=== PATIENT | female | born 1975 | race Caucasian/White ===

== ENCOUNTER → 2021-03-04 | Day surgery (SDC) | payer OTHER | END | disposition home or self-care (01) | LOC: FMAMMOTONE 12:05 | PROVIDERS: ATTEND Obstetrics & Gynecology | PROC: 0HBT3ZX Excision of Right Breast, Percutaneous Approach, Diagnostic (ICD-10-PCS; principal; 2021-03-04) | DX: D05.11 Intraductal carcinoma in situ of right breast (principal); N60.31 Fibrosclerosis of right breast; N60.91 Unspecified benign mammary dysplasia of right breast; N64.1 Fat necrosis of breast; N64.89 Other specified disorders of breast | CPT/HCPCS: 19081; 76098-TC-FY; 88305-TC; 88341-TC; 88342-TC ==

== ENCOUNTER 2021-06-15 04:11 | Day surgery (SDC) | payer OTHER ==
[2021-06-15] MEDS ORDERED: LIDOCAINE HCL 1%, 10 MG/ML (20ML VIAL) ONE ×2 (09:31→11:26)
[2021-06-15] MEDS ORDERED: MIDAZOLAM HCL 2 MG/2 ML SINGLE DOSE VIAL ONE (09:47)
[2021-06-15] MEDS ORDERED: PROPOFOL 20 ML ONE ×4 (09:47→11:20)
[2021-06-15] MEDS ORDERED: oxyCODONE HCL 5 MG TABLET PO PRN ×2 (09:59)
[2021-06-15] MEDS ORDERED: PROMETHAZINE HCL 25 MG/1 ML VIAL IVPB PRN (09:59)
[2021-06-15] MEDS ORDERED: ONDANSETRON 4 MG/2 ML VIAL IVPUSH PRN (09:59)
[2021-06-15] MEDS ORDERED: LACTATED RINGERS SOLUTION 1,000 ML IV SCH (10:00)
[2021-06-15] MEDS ORDERED: CLINDAMYCIN PHOSPHATE 600 MG/4 ML VIAL IVPB ONE (10:21)
[2021-06-15] MEDS ORDERED: LIDOCAINE HCL 1%, 10 MG/ML (20ML VIAL) NR ONE ×3 (10:27→11:27)
[2021-06-15] MEDS ORDERED: oxyCODONE HCL 5 MG TABLET PO ONE (12:45)
[2021-06-15] MEDS ORDERED: oxyCODONE HCL 5 MG TABLET ONE (12:49)
[2021-06-15 14:10] VITALS: BP 101/59; PULSE 79; TEMP 98
== END 2021-06-15 14:10 | disposition home or self-care (01) ==
LOC: JASU-SURG 04:11
PROVIDERS: ATTEND Surgery
PROC: 0HBT0ZZ Excision of Right Breast, Open Approach (ICD-10-PCS; principal; 2021-06-15 10:00)
DX: D05.91 Unspecified type of carcinoma in situ of right breast (principal)
CPT/HCPCS: 19281; 76098-TC-FY; 81025; 88307-TC; 88341-TC; 88342-TC; 94760

== ENCOUNTER 2021-07-19 04:45 | Day surgery (SDC) | payer OTHER ==
[2021-07-14 10:28] VITALS: BMI 35.8
[2021-07-19] MEDS ORDERED: ONDANSETRON 4 MG/2 ML VIAL IVPUSH PRN (14:23)
[2021-07-19] MEDS ORDERED: oxyCODONE HCL 5 MG TABLET PO PRN (14:23)
[2021-07-19] MEDS ORDERED: PROMETHAZINE HCL 25 MG/1 ML VIAL IVPUSH PRN (14:23)
[2021-07-19] MEDS ORDERED: ISOSULFAN BLUE 50 MG/5 ML VIAL SQ ONE (14:24)
[2021-07-19] MEDS ORDERED: LACTATED RINGERS SOLUTION 1,000 ML IV SCH (14:30)
[2021-07-19] MEDS ORDERED: PROPOFOL 20 ML ONE (14:59)
[2021-07-19] MEDS ORDERED: GLYCOPYRROLATE 0.2 MG/1 ML VIAL ONE (14:59)
[2021-07-19] MEDS ORDERED: MIDAZOLAM HCL 2 MG/2 ML SINGLE DOSE VIAL ONE (14:59)
[2021-07-19] MEDS ORDERED: SODIUM CHLORIDE 0.9% P/F 10 ML VIAL IJ ONE (15:00)
[2021-07-19] MEDS ORDERED: LIDOCAINE HCL/PF 2% SDV 5ML VIAL ONE (15:00)
[2021-07-19] MEDS ORDERED: ceFAZolin SODIUM 1 GM VIAL ONE (15:00)
[2021-07-19] MEDS ORDERED: ceFAZolin SODIUM 1 GM VIAL IVPB ONE (15:18)
[2021-07-19] MEDS ORDERED: DEXAMETHASONE SOD PHOSPHATE 4 MG/1 ML VIAL ONE (15:23)
[2021-07-19] MEDS ORDERED: ONDANSETRON 4 MG/2 ML VIAL ONE (15:23)
[2021-07-19] MEDS ORDERED: KETOROLAC TROMETHAMINE 30 MG/1 ML VIAL ONE (15:24)
[2021-07-19] MEDS ORDERED: LIDOCAINE HCL 1%, 10 MG/ML (20ML VIAL) SQ ONE (15:38)
[2021-07-19] MEDS ORDERED: oxyCODONE HCL 5 MG TABLET ONE (17:30)
[2021-07-19 18:29] VITALS: BP 117/65; PULSE 71; TEMP 97.1
== END 2021-07-19 18:23 | disposition home or self-care (01) ==
LOC: JASU-SURG 04:45
PROVIDERS: ATTEND Surgery
PROC: 07B50ZX Excision of Right Axillary Lymphatic, Open Approach, Diagnostic (ICD-10-PCS; principal; 2021-07-19 12:00)
DX: C50.911 Malignant neoplasm of unspecified site of right female breast (principal); C77.3 Secondary and unspecified malignant neoplasm of axilla and upper limb lymph nodes
CPT/HCPCS: 78195-TC; 81025; 88307-TC; 88342-TC; 94760; A9541

== ENCOUNTER 2021-09-17 09:22 | Day surgery (SDC) | payer OTHER ==
[2021-09-17 10:02] LABS: BASO % 1.2 % (0-2.0); HEMATOCRIT 36.6 % (32.4-45.2); HEMOGLOBIN 12.8 GM/dL (10.7-15.3); LYMPH % 23.5 % (8-40); MCH 30.3 pg (25.7-33.7); MEAN CELL VOLUME 86.7 fl (80-96); MEAN PLT VOLUME 8.1 fl (7.5-11.1); MONO % 10.1 % (3.8-10.2); NEUT % 61.2 % (42.8-82.8); PLATELET COUNT 330 10^3/uL (134-434); RBC 4.23 M/mm3 (3.60-5.2); RDW 13.1 % (11.6-15.6); WHITE BLOOD COUNT 6.2 K/mm3 (4.0-10.0)
[2021-09-17 10:23] LABS: ALBUMIN 3.8 g/dl (3.4-5.0); BLOOD UREA NITROGEN 15.8 mg/dL (7-18); CALCIUM 8.8 mg/dL (8.5-10.1)
[2021-09-17 10:27] LABS: CREATININE 0.9 mg/dL (0.55-1.3)
[2021-09-17 10:29] LABS: BILIRUBIN,TOTAL 0.5 mg/dL (0.2-1); TOT PROT 7.3 g/dl (6.4-8.2)
[2021-09-17 10:35] VITALS: BP 111/67; PULSE 81; TEMP 98.2
[2021-09-17] MEDS ORDERED: GOSERELIN ACETATE 3.6 MG IMPLANT SYRINGE SQ ONE (11:00)
[2021-09-17] MEDS ORDERED: LIDOCAINE HCL 1%, 10 MG/ML (20ML VIAL) ID ONE (11:00)
== END 2021-09-17 11:00 | disposition home or self-care (01) ==
LOC: JONCNONCHE 09:22
PROVIDERS: ATTEND Internal Medicine Hematology & Oncology
DX: Z51.11 Encounter for antineoplastic chemotherapy (principal); C50.911 Malignant neoplasm of unspecified site of right female breast
CPT/HCPCS: 36415; 80053; 84703; 85025; J9202

== ENCOUNTER 2021-10-15 08:15 | Day surgery (SDC) | payer OTHER ==
[2021-10-15] MEDS ORDERED: GOSERELIN ACETATE 3.6 MG IMPLANT SYRINGE SQ ONE (09:00)
[2021-10-15] MEDS ORDERED: LIDOCAINE 1% P/F 10 MG/ML VIAL ID ONE (09:00)
[2021-10-15 09:29] LABS: BASO % 0.9 % (0-2.0); EOS % 5.4 % (0-4.5); HEMATOCRIT 39.4 % (32.4-45.2); HEMOGLOBIN 13.6 GM/dL (10.7-15.3); LYMPH % 22.5 % (8-40); MCH 30.1 pg (25.7-33.7); MCHC 34.6 g/dl (32.0-36.0); MEAN PLT VOLUME 8.3 fl (7.5-11.1); MONO % 8.7 % (3.8-10.2); NEUT % 62.5 % (42.8-82.8); PLATELET COUNT 330 10^3/uL (134-434); RBC 4.53 M/mm3 (3.60-5.2); RDW 13.4 % (11.6-15.6); WHITE BLOOD COUNT 5.2 K/mm3 (4.0-10.0)
[2021-10-15 09:55] LABS: ALBUMIN 3.9 g/dl (3.4-5.0); BLOOD UREA NITROGEN 15.2 mg/dL (7-18); CALCIUM 9.4 mg/dL (8.5-10.1)
[2021-10-15 09:59] LABS: CREATININE 0.9 mg/dL (0.55-1.3)
[2021-10-15 10:01] LABS: BILIRUBIN,TOTAL 0.4 mg/dL (0.2-1); TOT PROT 7.6 g/dl (6.4-8.2)
[2021-10-15 17:12] VITALS: BP 125/83; PULSE 74; TEMP 98.3
== END 2021-10-15 09:45 | disposition home or self-care (01) ==
LOC: JONCCHEMO 08:15
PROVIDERS: ATTEND Internal Medicine Hematology & Oncology
DX: Z51.11 Encounter for antineoplastic chemotherapy (principal); C50.911 Malignant neoplasm of unspecified site of right female breast
CPT/HCPCS: 36415; 80053; 85025; 96402; J9202

== ENCOUNTER 2021-11-12 08:29 | Day surgery (SDC) | payer OTHER ==
[2021-11-12] MEDS ORDERED: LIDOCAINE HCL 1%, 10 MG/ML (20ML VIAL) ID ONE (10:00)
[2021-11-12] MEDS ORDERED: GOSERELIN ACETATE 3.6 MG IMPLANT SYRINGE SQ ONE (10:00)
[2021-11-12 14:00] LABS: BASO % 0.6 % (0-2.0); EOS % 6.2 % (0-4.5); HEMATOCRIT 40.4 % (32.4-45.2); HEMOGLOBIN 13.6 GM/dL (10.7-15.3); LYMPH % 18.3 % (8-40); MCH 29.5 pg (25.7-33.7); MCHC 33.7 g/dl (32.0-36.0); MEAN CELL VOLUME 87.5 fl (80-96); MEAN PLT VOLUME 8.3 fl (7.5-11.1); MONO % 10.9 % (3.8-10.2); PLATELET COUNT 299 10^3/uL (134-434); RBC 4.61 M/mm3 (3.60-5.2); RDW 12.8 % (11.6-15.6); WHITE BLOOD COUNT 5.1 K/mm3 (4.0-10.0)
[2021-11-12 14:24] LABS: CALCIUM 9.5 mg/dL (8.5-10.1)
[2021-11-12 14:25] LABS: ALBUMIN 3.8 g/dl (3.4-5.0); BLOOD UREA NITROGEN 15.4 mg/dL (7-18)
[2021-11-12 14:29] LABS: TOT PROT 7.6 g/dl (6.4-8.2)
[2021-11-12 14:30] LABS: BILIRUBIN,TOTAL 0.5 mg/dL (0.2-1)
[2021-11-12 15:43] VITALS: BP 117/69; PULSE 80; TEMP 98.5
== END 2021-11-12 15:20 | disposition home or self-care (01) ==
LOC: JONCCHEMO 08:29
PROVIDERS: ATTEND Internal Medicine Hematology & Oncology
DX: Z51.11 Encounter for antineoplastic chemotherapy (principal); C50.911 Malignant neoplasm of unspecified site of right female breast
CPT/HCPCS: 36415; 80053; 84703; 85025; 96402; J9202

== ENCOUNTER 2021-12-10 07:27 | Day surgery (SDC) | payer OTHER ==
[2021-12-10] MEDS ORDERED: GOSERELIN ACETATE 3.6 MG IMPLANT SYRINGE SQ ONE (10:00)
[2021-12-10] MEDS ORDERED: LIDOCAINE HCL 1%, 10 MG/ML (20ML VIAL) ID ONE (10:00)
[2021-12-10 10:16] LABS: BASO % 0.6 % (0-2.0); EOS % 4.3 % (0-4.5); HEMATOCRIT 41.1 % (32.4-45.2); HEMOGLOBIN 13.7 GM/dL (10.7-15.3); MCHC 33.4 g/dl (32.0-36.0); MEAN PLT VOLUME 8.3 fl (7.5-11.1); MONO % 10.4 % (3.8-10.2); NEUT % 65.7 % (42.8-82.8); PLATELET COUNT 335 10^3/uL (134-434); RBC 4.73 M/mm3 (3.60-5.2); RDW 13.1 % (11.6-15.6); WHITE BLOOD COUNT 4.5 K/mm3 (4.0-10.0)
[2021-12-10 10:53] LABS: CALCIUM 9.4 mg/dL (8.5-10.1)
[2021-12-10 10:54] LABS: ALBUMIN 3.8 g/dl (3.4-5.0); BLOOD UREA NITROGEN 16.5 mg/dL (7-18)
[2021-12-10 10:57] LABS: CREATININE 0.8 mg/dL (0.55-1.3)
[2021-12-10 10:59] LABS: BILIRUBIN,TOTAL 0.4 mg/dL (0.2-1)
[2021-12-10 11:01] LABS: TOT PROT 7.6 g/dl (6.4-8.2)
[2021-12-10 16:00] VITALS: BP 132/75; PULSE 78; TEMP 98.3
== END 2021-12-10 10:15 | disposition home or self-care (01) ==
LOC: JONCCHEMO 07:27
PROVIDERS: ATTEND Internal Medicine Hematology & Oncology
DX: Z51.11 Encounter for antineoplastic chemotherapy (principal); C50.911 Malignant neoplasm of unspecified site of right female breast
CPT/HCPCS: 36415; 80053; 85025; 96402; J9202

== ENCOUNTER 2022-01-07 07:51 | Day surgery (SDC) | payer OTHER ==
[2022-01-07] MEDS ORDERED: GOSERELIN ACETATE 3.6 MG IMPLANT SYRINGE SQ ONE (10:00)
[2022-01-07] MEDS ORDERED: LIDOCAINE HCL 1%, 10 MG/ML (20ML VIAL) ID ONE (10:00)
[2022-01-07 11:44] LABS: BASO % 0.8 % (0-2.0); EOS % 4.3 % (0-4.5); HEMATOCRIT 38.5 % (32.4-45.2); HEMOGLOBIN 13.2 GM/dL (10.7-15.3); LYMPH % 19.8 % (8-40); MCH 29.4 pg (25.7-33.7); MCHC 34.3 g/dl (32.0-36.0); MEAN CELL VOLUME 85.7 fl (80-96); MEAN PLT VOLUME 8.3 fl (7.5-11.1); MONO % 11.6 % (3.8-10.2); NEUT % 63.5 % (42.8-82.8); PLATELET COUNT 348 10^3/uL (134-434); RDW 12.9 % (11.6-15.6); WHITE BLOOD COUNT 5.1 K/mm3 (4.0-10.0)
[2022-01-07 12:03] LABS: ALBUMIN 3.6 g/dl (3.4-5.0); CALCIUM 9.4 mg/dL (8.5-10.1)
[2022-01-07 12:04] LABS: BLOOD UREA NITROGEN 20.2 mg/dL (7-18)
[2022-01-07 12:06] LABS: CREATININE 0.8 mg/dL (0.55-1.3)
[2022-01-07 12:08] LABS: BILIRUBIN,TOTAL 0.4 mg/dL (0.2-1); TOT PROT 7.6 g/dl (6.4-8.2)
[2022-01-07 12:30] VITALS: BP 117/76; PULSE 79; TEMP 98.6
== END 2022-01-07 12:45 | disposition home or self-care (01) ==
LOC: JONCCHEMO 07:51
PROVIDERS: ATTEND Internal Medicine Hematology & Oncology
DX: Z51.11 Encounter for antineoplastic chemotherapy (principal); C50.911 Malignant neoplasm of unspecified site of right female breast
CPT/HCPCS: 36415; 80053; 82670; 85025; 96402; J9202

== ENCOUNTER 2022-02-11 07:20 | Day surgery (SDC) | payer OTHER ==
[2022-02-11] MEDS ORDERED: GOSERELIN ACETATE 3.6 MG IMPLANT SYRINGE SQ ONE (10:00)
[2022-02-11] MEDS ORDERED: LIDOCAINE 1% P/F 10 MG/ML VIAL ID ONE (10:00)
[2022-02-11 10:22] LABS: BASO % 0.6 % (0-2.0); EOS % 3.5 % (0-4.5); HEMATOCRIT 38.9 % (32.4-45.2); HEMOGLOBIN 13.3 GM/dL (10.7-15.3); LYMPH % 19.9 % (8-40); MCH 29.6 pg (25.7-33.7); MCHC 34.1 g/dl (32.0-36.0); MEAN CELL VOLUME 86.7 fl (80-96); MEAN PLT VOLUME 8.5 fl (7.5-11.1); PLATELET COUNT 319 10^3/uL (134-434); RBC 4.49 M/mm3 (3.60-5.2); RDW 12.9 % (11.6-15.6); WHITE BLOOD COUNT 4.7 K/mm3 (4.0-10.0)
[2022-02-11 10:36] LABS: ALBUMIN 3.7 g/dl (3.4-5.0); CALCIUM 9.5 mg/dL (8.5-10.1)
[2022-02-11 10:39] LABS: CREATININE 0.9 mg/dL (0.55-1.3)
[2022-02-11 10:41] LABS: BILIRUBIN,TOTAL 0.4 mg/dL (0.2-1); TOT PROT 7.4 g/dl (6.4-8.2)
[2022-02-11 15:40] VITALS: BP 118/73; PULSE 77; RESP 16; TEMP 98.2
== END 2022-02-11 10:10 | disposition home or self-care (01) ==
LOC: JONCCHEMO 07:20
PROVIDERS: ATTEND Internal Medicine Hematology & Oncology
DX: Z51.11 Encounter for antineoplastic chemotherapy (principal); C50.911 Malignant neoplasm of unspecified site of right female breast
CPT/HCPCS: 36415; 80053; 85025; 96402; J9202

== ENCOUNTER 2022-03-11 07:21 | Day surgery (SDC) | payer OTHER ==
[2022-03-11] MEDS ORDERED: LIDOCAINE HCL 1%, 10 MG/ML (20ML VIAL) ID ONE (10:00)
[2022-03-11] MEDS ORDERED: GOSERELIN ACETATE 3.6 MG IMPLANT SYRINGE SQ ONE (10:00)
[2022-03-11 10:12] LABS: BASO % 1.3 % (0-2.0); EOS % 4.7 % (0-4.5); HEMOGLOBIN 13.5 GM/dL (10.7-15.3); LYMPH % 15.7 % (8-40); MCH 29.4 pg (25.7-33.7); MCHC 33.8 g/dl (32.0-36.0); MEAN CELL VOLUME 87.1 fl (80-96); MEAN PLT VOLUME 8.6 fl (7.5-11.1); MONO % 7.9 % (3.8-10.2); NEUT % 70.4 % (42.8-82.8); PLATELET COUNT 328 10^3/uL (134-434); RBC 4.59 M/mm3 (3.60-5.2); RDW 12.5 % (11.6-15.6); WHITE BLOOD COUNT 6.6 K/mm3 (4.0-10.0)
[2022-03-11 10:39] LABS: CALCIUM 9.3 mg/dL (8.5-10.1)
[2022-03-11 10:40] LABS: ALBUMIN 3.7 g/dl (3.4-5.0); BLOOD UREA NITROGEN 20.9 mg/dL (7-18)
[2022-03-11 10:43] LABS: CREATININE 0.9 mg/dL (0.55-1.3)
[2022-03-11 10:45] LABS: TOT PROT 7.8 g/dl (6.4-8.2)
[2022-03-11 10:46] LABS: BILIRUBIN,TOTAL 0.7 mg/dL (0.2-1)
[2022-03-11 12:34] VITALS: BP 136/81; PULSE 76; RESP 18; TEMP 98
== END 2022-03-11 11:50 | disposition home or self-care (01) ==
LOC: JONCCHEMO 07:21
PROVIDERS: ATTEND Internal Medicine Hematology & Oncology
DX: Z51.11 Encounter for antineoplastic chemotherapy (principal); C50.911 Malignant neoplasm of unspecified site of right female breast
CPT/HCPCS: 36415; 80053; 85025; 96402; J9202

== ENCOUNTER 2022-04-07 11:40 | Day surgery (SDC) | payer OTHER ==
[2022-04-07] MEDS ORDERED: GOSERELIN ACETATE 3.6 MG IMPLANT SYRINGE SQ ONE (12:30)
[2022-04-07] MEDS ORDERED: LIDOCAINE HCL 1%, 10 MG/ML (20ML VIAL) ID ONE (12:30)
[2022-04-07 12:46] VITALS: BP 126/81; PULSE 83; RESP 18; TEMP 98.8
[2022-04-07 12:55] LABS: BASO % 0.6 % (0-2.0); HEMATOCRIT 39.4 % (32.4-45.2); HEMOGLOBIN 13.6 GM/dL (10.7-15.3); LYMPH % 22.3 % (8-40); MCH 29.9 pg (25.7-33.7); MCHC 34.5 g/dl (32.0-36.0); MEAN CELL VOLUME 86.6 fl (80-96); MEAN PLT VOLUME 7.8 fl (7.5-11.1); MONO % 10.5 % (3.8-10.2); NEUT % 62.6 % (42.8-82.8); PLATELET COUNT 319 10^3/uL (134-434); RBC 4.55 M/mm3 (3.60-5.2); RDW 12.5 % (11.6-15.6)
[2022-04-07 13:13] LABS: CALCIUM 9.5 mg/dL (8.5-10.1)
[2022-04-07 13:15] LABS: ALBUMIN 3.8 g/dl (3.4-5.0); BLOOD UREA NITROGEN 18.6 mg/dL (7-18)
[2022-04-07 13:17] LABS: BILIRUBIN,DIRECT 0.1 mg/dL (0.0-0.2)
[2022-04-07 13:18] LABS: CREATININE 0.9 mg/dL (0.55-1.3)
[2022-04-07 13:20] LABS: BILIRUBIN,TOTAL 0.5 mg/dL (0.2-1); TOT PROT 7.6 g/dl (6.4-8.2)
== END 2022-04-07 13:50 | disposition home or self-care (01) ==
LOC: JONCNONCHE 11:40
PROVIDERS: ATTEND Internal Medicine Hematology & Oncology
DX: Z51.11 Encounter for antineoplastic chemotherapy (principal); C50.911 Malignant neoplasm of unspecified site of right female breast
CPT/HCPCS: 36415; 80048; 80076; 82378; 82670; 83001; 83002; 84703; 85025; 86300; 96402; J9202

== ENCOUNTER 2022-05-09 13:14 | Day surgery (SDC) | payer OTHER ==
[~2022-05-09 13:14] MED LIST: GOSERELIN ACETATE 3.6 MG IMPLANT SYRINGE SQ ONE; LIDOCAINE HCL 1%, 10 MG/ML (20ML VIAL) ID ONE
[2022-05-09 14:38] LABS: BASO % 0.8 % (0-2.0); EOS % 3.9 % (0-4.5); HEMATOCRIT 41.3 % (32.4-45.2); HEMOGLOBIN 13.5 GM/dL (10.7-15.3); LYMPH % 23.2 % (8-40); MCH 28.5 pg (25.7-33.7); MCHC 32.6 g/dl (32.0-36.0); MEAN CELL VOLUME 87.4 fl (80-96); MEAN PLT VOLUME 8.6 fl (7.5-11.1); MONO % 9.7 % (3.8-10.2); NEUT % 62.4 % (42.8-82.8); PLATELET COUNT 352 10^3/uL (134-434); RBC 4.73 M/mm3 (3.60-5.2); RDW 13.1 % (11.6-15.6)
[2022-05-09 14:56] LABS: CALCIUM 9.8 mg/dL (8.5-10.1)
[2022-05-09 14:57] LABS: BLOOD UREA NITROGEN 13.5 mg/dL (7-18); MAGNESIUM 2.3 mg/dL (1.8-2.4)
[2022-05-09 14:59] LABS: BILIRUBIN,DIRECT 0.2 mg/dL (0.0-0.2)
[2022-05-09 15:00] LABS: CREATININE 0.8 mg/dL (0.55-1.3)
[2022-05-09 15:01] LABS: BILIRUBIN,TOTAL 0.4 mg/dL (0.2-1); TOT PROT 7.7 g/dl (6.4-8.2)
[2022-05-09 19:00] VITALS: BP 116/74; PULSE 83; RESP 20; TEMP 98.3
[2022-05-11 08:08] LABS: FOLLICLE STIMULATING HORMONE 10.6 mIU/mL (.); LUTEINIZING HORMONE < 0.3 mIU/mL (.)
== END 2022-05-09 15:15 | disposition home or self-care (01) ==
LOC: JONCCHEMO 13:14
PROVIDERS: ATTEND Internal Medicine Hematology & Oncology
DX: Z51.11 Encounter for antineoplastic chemotherapy (principal); C50.911 Malignant neoplasm of unspecified site of right female breast
CPT/HCPCS: 36415; 80048; 80076; 82306; 82378; 82670; 83001; 83002; 83735; 84703; 85025; 86300; 96402; J9202

== ENCOUNTER 2022-06-09 11:52 | Day surgery (SDC) | payer OTHER ==
[2022-06-09 12:45] LABS: BASO % 0.5 % (0-2.0); EOS % 3.4 % (0-4.5); HEMATOCRIT 40.3 % (32.4-45.2); HEMOGLOBIN 13.5 GM/dL (10.7-15.3); LYMPH % 15.4 % (8-40); MCH 28.7 pg (25.7-33.7); MCHC 33.5 g/dl (32.0-36.0); MEAN CELL VOLUME 85.8 fl (80-96); MEAN PLT VOLUME 8.1 fl (7.5-11.1); MONO % 16.3 % (3.8-10.2); NEUT % 64.4 % (42.8-82.8); PLATELET COUNT 319 10^3/uL (134-434); WHITE BLOOD COUNT 4.2 K/mm3 (4.0-10.0)
[2022-06-09] MEDS ORDERED: GOSERELIN ACETATE 3.6 MG IMPLANT SYRINGE SQ ONE (13:00)
[2022-06-09 13:12] LABS: CALCIUM 9.5 mg/dL (8.5-10.1)
[2022-06-09 13:13] LABS: ALBUMIN 3.8 g/dl (3.4-5.0); BLOOD UREA NITROGEN 15.9 mg/dL (7-18)
[2022-06-09 13:15] LABS: BILIRUBIN,DIRECT 0.1 mg/dL (0.0-0.2)
[2022-06-09 13:16] LABS: CREATININE 0.9 mg/dL (0.55-1.3)
[2022-06-09 13:18] LABS: BILIRUBIN,TOTAL 0.3 mg/dL (0.2-1); TOT PROT 7.5 g/dl (6.4-8.2)
[2022-06-09] MEDS: LIDOCAINE HCL 1%, 10 MG/ML (20ML VIAL) ID ONE ×2 (13:25→13:30)
[2022-06-09 17:58] VITALS: BP 144/62; PULSE 93; RESP 18; TEMP 98.1
[2022-06-11 08:06] LABS: CARCINOEMBRYONIC ANTIGEN 1.7 ng/mL (0.0-4.7); LUTEINIZING HORMONE < 0.3 mIU/mL (.)
== END 2022-06-09 13:40 | disposition home or self-care (01) ==
LOC: JONCCHEMO 11:52
PROVIDERS: ATTEND Internal Medicine Hematology & Oncology
DX: Z51.11 Encounter for antineoplastic chemotherapy (principal); C50.911 Malignant neoplasm of unspecified site of right female breast
CPT/HCPCS: 36415; 80048; 80076; 82378; 82670; 83001; 83002; 84703; 85025; 86300; 96402; J9202

== ENCOUNTER 2022-07-07 07:22 | Day surgery (SDC) | payer OTHER ==
[2022-07-07] MEDS ORDERED: GOSERELIN ACETATE 3.6 MG IMPLANT SYRINGE SQ ONE (10:00)
[2022-07-07] MEDS ORDERED: LIDOCAINE HCL 1%, 10 MG/ML (20ML VIAL) ID ONE (10:00)
[2022-07-07 11:26] LABS: BASO % 0.5 % (0-2.0); EOS % 4.6 % (0-4.5); HEMOGLOBIN 13.6 GM/dL (10.7-15.3); MCH 28.8 pg (25.7-33.7); MCHC 33.1 g/dl (32.0-36.0); MEAN CELL VOLUME 87.3 fl (80-96); MEAN PLT VOLUME 8.4 fl (7.5-11.1); MONO % 9.7 % (3.8-10.2); NEUT % 62.2 % (42.8-82.8); PLATELET COUNT 363 10^3/uL (134-434); WHITE BLOOD COUNT 4.8 K/mm3 (4.0-10.0)
[2022-07-07 11:54] LABS: CALCIUM 9.5 mg/dL (8.5-10.1)
[2022-07-07 11:55] LABS: ALBUMIN 3.7 g/dl (3.4-5.0); BLOOD UREA NITROGEN 19.8 mg/dL (7-18); MAGNESIUM 1.9 mg/dL (1.8-2.4)
[2022-07-07 11:57] LABS: BILIRUBIN,DIRECT 0.1 mg/dL (0.0-0.2)
[2022-07-07 11:58] LABS: CREATININE 0.8 mg/dL (0.55-1.3)
[2022-07-07 11:59] LABS: BILIRUBIN,TOTAL 0.3 mg/dL (0.2-1)
[2022-07-07 12:00] LABS: TOT PROT 7.5 g/dl (6.4-8.2)
[2022-07-07 15:56] VITALS: BP 121/79; PULSE 72; RESP 18; TEMP 97.6
[2022-07-09 08:07] LABS: CARCINOEMBRYONIC ANTIGEN 2.2 ng/mL (0.0-4.7)
== END 2022-07-07 12:00 | disposition home or self-care (01) ==
LOC: JONCCHEMO 07:22
PROVIDERS: ATTEND Internal Medicine Hematology & Oncology
DX: Z51.11 Encounter for antineoplastic chemotherapy (principal); C50.911 Malignant neoplasm of unspecified site of right female breast
CPT/HCPCS: 36415; 80048; 80076; 82378; 82670; 83735; 84703; 85025; 86300; 96402; J9202

== ENCOUNTER 2022-08-04 12:14 | Day surgery (SDC) | payer OTHER ==
[~2022-08-04 12:14] MED LIST changes: +LIDOCAINE 1% P/F 10 MG/ML VIAL ID ONE; -LIDOCAINE HCL 1%, 10 MG/ML (20ML VIAL) ID ONE
[2022-08-04 13:12] LABS: BASO % 1.1 % (0-2.0); EOS % 3.6 % (0-4.5); HEMATOCRIT 40.6 % (32.4-45.2); HEMOGLOBIN 13.9 GM/dL (10.7-15.3); LYMPH % 24.3 % (8-40); MCH 29.5 pg (25.7-33.7); MCHC 34.3 g/dl (32.0-36.0); MEAN PLT VOLUME 8.4 fl (7.5-11.1); MONO % 9.4 % (3.8-10.2); NEUT % 61.6 % (42.8-82.8); PLATELET COUNT 356 10^3/uL (134-434); RBC 4.72 M/mm3 (3.60-5.2); RDW 12.8 % (11.6-15.6); WHITE BLOOD COUNT 5.1 K/mm3 (4.0-10.0)
[2022-08-04 13:33] LABS: CALCIUM 9.6 mg/dL (8.5-10.1); MAGNESIUM 2.1 mg/dL (1.8-2.4)
[2022-08-04 13:34] LABS: BLOOD UREA NITROGEN 17.2 mg/dL (7-18)
[2022-08-04 13:36] LABS: BILIRUBIN,DIRECT 0.1 mg/dL (0.0-0.2)
[2022-08-04 13:37] LABS: CREATININE 0.9 mg/dL (0.55-1.3)
[2022-08-04 13:38] LABS: BILIRUBIN,TOTAL 0.5 mg/dL (0.2-1); TOT PROT 7.9 g/dl (6.4-8.2)
[2022-08-04 15:13] VITALS: BP 107/66; PULSE 96; RESP 18; TEMP 98.6
== END 2022-08-04 13:35 | disposition home or self-care (01) ==
LOC: JONCCHEMO 12:14
PROVIDERS: ATTEND Internal Medicine Hematology & Oncology
DX: Z51.11 Encounter for antineoplastic chemotherapy (principal); C50.911 Malignant neoplasm of unspecified site of right female breast
CPT/HCPCS: 36415; 80048; 80076; 82378; 82670; 83735; 84703; 85025; 86300; 96402; J9202

== ENCOUNTER 2022-09-01 11:44 | Day surgery (SDC) | payer OTHER ==
[~2022-09-01 11:44] MED LIST changes: -LIDOCAINE 1% P/F 10 MG/ML VIAL ID ONE; +LIDOCAINE HCL 1%, 10 MG/ML (20ML VIAL) ID ONE
[2022-09-01 12:52] LABS: BASO % 0.9 % (0-2.0); EOS % 4.8 % (0-4.5); HEMATOCRIT 39.6 % (32.4-45.2); HEMOGLOBIN 13.5 GM/dL (10.7-15.3); LYMPH % 23.3 % (8-40); MCH 29.8 pg (25.7-33.7); MCHC 34.2 g/dl (32.0-36.0); MEAN CELL VOLUME 87.2 fl (80-96); MEAN PLT VOLUME 8.3 fl (7.5-11.1); MONO % 10.5 % (3.8-10.2); NEUT % 60.5 % (42.8-82.8); PLATELET COUNT 372 10^3/uL (134-434); RBC 4.55 M/mm3 (3.60-5.2); RDW 13.3 % (11.6-15.6); WHITE BLOOD COUNT 4.9 K/mm3 (4.0-10.0)
[2022-09-01 13:35] LABS: CALCIUM 9.5 mg/dL (8.5-10.1)
[2022-09-01 13:36] LABS: ALBUMIN 3.8 g/dl (3.4-5.0); BLOOD UREA NITROGEN 18.8 mg/dL (7-18); MAGNESIUM 1.9 mg/dL (1.8-2.4)
[2022-09-01 13:38] LABS: BILIRUBIN,DIRECT 0.1 mg/dL (0.0-0.2)
[2022-09-01 13:39] LABS: CREATININE 0.8 mg/dL (0.55-1.3)
[2022-09-01 13:40] LABS: BILIRUBIN,TOTAL 0.4 mg/dL (0.2-1)
[2022-09-01 13:41] LABS: TOT PROT 7.5 g/dl (6.4-8.2)
[2022-09-01 16:39] VITALS: RESP 20; TEMP 98.3
[2022-09-01 17:43] VITALS: BP 122/78; PULSE 87
== END 2022-09-01 13:25 | disposition home or self-care (01) ==
LOC: JONCCHEMO 11:44
PROVIDERS: ATTEND Internal Medicine Hematology & Oncology
DX: Z51.11 Encounter for antineoplastic chemotherapy (principal); C50.911 Malignant neoplasm of unspecified site of right female breast
CPT/HCPCS: 36415; 80048; 80076; 82306; 82378; 82670; 83735; 84703; 85025; 86300; 96402; J9202

== ENCOUNTER 2022-09-29 10:09 | Day surgery (SDC) | payer OTHER ==
[2022-09-29 10:53] LABS: BASO % 0.2 % (0-2.0); EOS % 2.8 % (0-4.5); HEMATOCRIT 41.1 % (32.4-45.2); LYMPH % 9.1 % (8-40); MCH 29.2 pg (25.7-33.7); MCHC 34.1 g/dl (32.0-36.0); MEAN CELL VOLUME 85.8 fl (80-96); MEAN PLT VOLUME 8.2 fl (7.5-11.1); MONO % 3.9 % (3.8-10.2); PLATELET COUNT 394 10^3/uL (134-434); RBC 4.79 M/mm3 (3.60-5.2); RDW 12.8 % (11.6-15.6); WHITE BLOOD COUNT 7.3 K/mm3 (4.0-10.0)
[2022-09-29 11:10] LABS: CALCIUM 9.3 mg/dL (8.5-10.1)
[2022-09-29 11:11] LABS: ALBUMIN 3.9 g/dl (3.4-5.0); BLOOD UREA NITROGEN 25.1 mg/dL (7-18); MAGNESIUM 1.9 mg/dL (1.8-2.4)
[2022-09-29 11:13] LABS: BILIRUBIN,DIRECT 0.1 mg/dL (0.0-0.2)
[2022-09-29 11:14] LABS: CREATININE 0.8 mg/dL (0.55-1.3)
[2022-09-29 11:16] LABS: BILIRUBIN,TOTAL 0.5 mg/dL (0.2-1); TOT PROT 7.8 g/dl (6.4-8.2)
[2022-09-29 16:28] VITALS: BP 111/71; PULSE 78; RESP 20; TEMP 98.1
[2022-09-30 08:07] LABS: CARCINOEMBRYONIC ANTIGEN 1.8 ng/mL (0.0-4.7); FOLLICLE STIMULATING HORMONE 9.5 mIU/mL (.); LUTEINIZING HORMONE < 0.3 mIU/mL (.)
== END 2022-09-29 11:15 | disposition home or self-care (01) ==
LOC: JONCCHEMO 10:09
PROVIDERS: ATTEND Internal Medicine Hematology & Oncology
DX: C50.911 Malignant neoplasm of unspecified site of right female breast (principal); Z51.11 Encounter for antineoplastic chemotherapy
CPT/HCPCS: 36415; 80048; 80076; 82378; 82670; 83001; 83002; 83735; 84703; 85025; 86300; 96402; J9202

== ENCOUNTER 2022-11-07 11:37 | Day surgery (SDC) | payer OTHER ==
[2022-11-07 12:51] LABS: CALCIUM 9.8 mg/dL (8.5-10.1)
[2022-11-07 12:52] LABS: BLOOD UREA NITROGEN 17.7 mg/dL (7-18); MAGNESIUM 1.9 mg/dL (1.8-2.4)
[2022-11-07 12:53] LABS: BASO % 0.7 % (0-2.0); EOS % 5.7 % (0-4.5); HEMATOCRIT 39.5 % (32.4-45.2); HEMOGLOBIN 13.9 GM/dL (10.7-15.3); LYMPH % 26.7 % (8-40); MCH 29.9 pg (25.7-33.7); MCHC 35.2 g/dl (32.0-36.0); MEAN CELL VOLUME 84.9 fl (80-96); MONO % 7.9 % (3.8-10.2); PLATELET COUNT 352 10^3/uL (134-434); RBC 4.65 M/mm3 (3.60-5.2); RDW 12.8 % (11.6-15.6); WHITE BLOOD COUNT 4.1 K/mm3 (4.0-10.0)
[2022-11-07 12:54] LABS: BILIRUBIN,DIRECT 0.1 mg/dL (0.0-0.2)
[2022-11-07 12:55] LABS: CREATININE 0.9 mg/dL (0.55-1.3)
[2022-11-07 12:56] LABS: BILIRUBIN,TOTAL 0.6 mg/dL (0.2-1); TOT PROT 7.9 g/dl (6.4-8.2)
[2022-11-07 15:57] VITALS: BP 111/69; PULSE 75; RESP 20; TEMP 98.3
[2022-11-08 08:06] LABS: CARCINOEMBRYONIC ANTIGEN 2.2 ng/mL (0.0-4.7); FOLLICLE STIMULATING HORMONE 9.9 mIU/mL (.); LUTEINIZING HORMONE < 0.3 mIU/mL (.)
== END 2022-11-07 13:30 | disposition home or self-care (01) ==
LOC: JONCCHEMO 11:37
PROVIDERS: ATTEND Internal Medicine Hematology & Oncology
DX: Z51.11 Encounter for antineoplastic chemotherapy (principal); C50.911 Malignant neoplasm of unspecified site of right female breast
CPT/HCPCS: 36415; 80048; 80076; 82306; 82378; 82670; 83001; 83002; 83735; 84703; 85025; 86300; 96402; J9202

== ENCOUNTER 2022-12-05 11:05 | Day surgery (SDC) | payer OTHER ==
[2022-12-05 11:51] LABS: BASO % 0.8 % (0-2.0); EOS % 6.5 % (0-4.5); HEMATOCRIT 38.7 % (32.4-45.2); HEMOGLOBIN 13.4 GM/dL (10.7-15.3); LYMPH % 25.3 % (8-40); MCH 29.4 pg (25.7-33.7); MCHC 34.5 g/dl (32.0-36.0); MEAN CELL VOLUME 85.1 fl (80-96); MEAN PLT VOLUME 8.7 fl (7.5-11.1); MONO % 10.7 % (3.8-10.2); NEUT % 56.7 % (42.8-82.8); PLATELET COUNT 307 10^3/uL (134-434); RBC 4.55 M/mm3 (3.60-5.2); RDW 12.9 % (11.6-15.6); WHITE BLOOD COUNT 3.6 K/mm3 (4.0-10.0)
[2022-12-05 12:20] LABS: POTASSIUM 4.2 mmol/L (3.5-5.1)
[2022-12-05 12:23] LABS: CALCIUM 9.6 mg/dL (8.5-10.1)
[2022-12-05 12:24] LABS: ALBUMIN 3.7 g/dl (3.4-5.0); BLOOD UREA NITROGEN 20.1 mg/dL (7-18); MAGNESIUM 1.8 mg/dL (1.8-2.4)
[2022-12-05 12:26] LABS: BILIRUBIN,DIRECT 0.1 mg/dL (0.0-0.2)
[2022-12-05 12:27] LABS: CREATININE 0.9 mg/dL (0.55-1.3)
[2022-12-05 12:28] LABS: BILIRUBIN,TOTAL 0.8 mg/dL (0.2-1); TOT PROT 7.5 g/dl (6.4-8.2)
[2022-12-05 14:18] VITALS: BP 118/64; PULSE 74; RESP 18; TEMP 98
[2022-12-06 08:15] LABS: FOLLICLE STIMULATING HORMONE 8.8 mIU/mL (.); LUTEINIZING HORMONE 0.3 mIU/mL (.)
== END 2022-12-05 12:00 | disposition home or self-care (01) ==
LOC: JONCCHEMO 11:05 → J7W 11:06 → JONCCHEMO 12:00
PROVIDERS: ATTEND Internal Medicine Hematology & Oncology
DX: Z51.11 Encounter for antineoplastic chemotherapy (principal); C50.911 Malignant neoplasm of unspecified site of right female breast
CPT/HCPCS: 36415; 80048; 80076; 82378; 82670; 83001; 83002; 83735; 84703; 85025; 86300; 96402; J9202

== ENCOUNTER 2023-01-02 11:28 | Day surgery (SDC) | payer OTHER ==
[2023-01-02 12:07] LABS: EOS % 7.1 % (0-4.5); HEMATOCRIT 39.9 % (32.4-45.2); HEMOGLOBIN 13.8 GM/dL (10.7-15.3); LYMPH % 27.3 % (8-40); MCH 29.2 pg (25.7-33.7); MCHC 34.5 g/dl (32.0-36.0); MEAN CELL VOLUME 84.7 fl (80-96); MEAN PLT VOLUME 8.4 fl (7.5-11.1); MONO % 7.9 % (3.8-10.2); NEUT % 56.7 % (42.8-82.8); PLATELET COUNT 308 10^3/uL (134-434); RBC 4.71 M/mm3 (3.60-5.2); RDW 13.3 % (11.6-15.6); WHITE BLOOD COUNT 4.1 K/mm3 (4.0-10.0)
[2023-01-02 12:32] LABS: POTASSIUM 4.1 mmol/L (3.5-5.1)
[2023-01-02 12:33] LABS: CALCIUM 9.5 mg/dL (8.5-10.1)
[2023-01-02 12:34] LABS: MAGNESIUM 1.8 mg/dL (1.8-2.4)
[2023-01-02 12:37] LABS: BILIRUBIN,DIRECT 0.1 mg/dL (0.0-0.2); CREATININE 0.9 mg/dL (0.55-1.3)
[2023-01-02 12:38] LABS: BILIRUBIN,TOTAL 0.8 mg/dL (0.2-1)
[2023-01-02 12:39] LABS: TOT PROT 7.5 g/dl (6.4-8.2)
[2023-01-02 16:24] VITALS: BP 113/62; PULSE 83; RESP 20; TEMP 98.2
[2023-01-03 08:10] LABS: FOLLICLE STIMULATING HORMONE 8.9 mIU/mL (.); LUTEINIZING HORMONE < 0.3 mIU/mL (.)
== END 2023-01-02 12:25 | disposition home or self-care (01) ==
LOC: JONCCHEMO 11:28 → J7W 11:32 → JONCCHEMO 12:25
PROVIDERS: ATTEND Internal Medicine Hematology & Oncology
DX: Z51.11 Encounter for antineoplastic chemotherapy (principal); C50.911 Malignant neoplasm of unspecified site of right female breast
CPT/HCPCS: 36415; 80048; 80076; 82378; 82670; 83001; 83002; 83735; 84703; 85025; 86300; 96402; J9202

== ENCOUNTER 2023-01-30 11:37 | Day surgery (SDC) | payer OTHER ==
[2023-01-30 13:35] LABS: BASO % 0.9 % (0-2.0); EOS % 6.9 % (0-4.5); HEMATOCRIT 40.6 % (32.4-45.2); HEMOGLOBIN 13.4 GM/dL (10.7-15.3); LYMPH % 26.4 % (8-40); MEAN CELL VOLUME 87.8 fl (80-96); MEAN PLT VOLUME 9.5 fl (7.5-11.1); MONO % 7.9 % (3.8-10.2); NEUT % 57.9 % (42.8-82.8); PLATELET COUNT 317 10^3/uL (134-434); RBC 4.63 M/mm3 (3.60-5.2); RDW 13.3 % (11.6-15.6); WHITE BLOOD COUNT 4.3 K/mm3 (4.0-10.0)
[2023-01-30 13:52] LABS: POTASSIUM 4.2 mmol/L (3.5-5.1)
[2023-01-30 13:54] LABS: ALBUMIN 3.6 g/dl (3.4-5.0); BLOOD UREA NITROGEN 20.8 mg/dL (7-18); CALCIUM 9.4 mg/dL (8.5-10.1)
[2023-01-30 13:55] LABS: MAGNESIUM 1.9 mg/dL (1.8-2.4)
[2023-01-30 13:57] LABS: BILIRUBIN,DIRECT 0.1 mg/dL (0.0-0.2); CREATININE 0.9 mg/dL (0.55-1.3)
[2023-01-30 13:58] LABS: BILIRUBIN,TOTAL 0.5 mg/dL (0.2-1)
[2023-01-30 13:59] LABS: TOT PROT 7.2 g/dl (6.4-8.2)
[2023-01-30 16:36] VITALS: BP 115/63; PULSE 79; RESP 20; TEMP 98
[2023-01-31 10:11] LABS: FOLLICLE STIMULATING HORMONE 7.8 mIU/mL (.); LUTEINIZING HORMONE < 0.3 mIU/mL (.)
== END 2023-01-30 13:20 | disposition home or self-care (01) ==
LOC: JONCCHEMO 11:37
PROVIDERS: ATTEND Internal Medicine Hematology & Oncology
DX: Z51.11 Encounter for antineoplastic chemotherapy (principal); C50.911 Malignant neoplasm of unspecified site of right female breast
CPT/HCPCS: 36415; 80048; 80076; 82378; 82670; 83001; 83002; 83735; 84703; 85025; 86300; 96372; J9202

== ENCOUNTER 2023-02-27 12:05 | Day surgery (SDC) | payer OTHER ==
[2023-02-27 13:27] LABS: EOS % 10.7 % (0-4.5); HEMATOCRIT 40.8 % (32.4-45.2); HEMOGLOBIN 13.9 GM/dL (10.7-15.3); LYMPH % 26.9 % (8-40); MCH 29.3 pg (25.7-33.7); MEAN CELL VOLUME 86.3 fl (80-96); MEAN PLT VOLUME 8.7 fl (7.5-11.1); MONO % 6.7 % (3.8-10.2); NEUT % 54.7 % (42.8-82.8); PLATELET COUNT 329 10^3/uL (134-434); RBC 4.73 M/mm3 (3.60-5.2); RDW 13.4 % (11.6-15.6); WHITE BLOOD COUNT 4.9 K/mm3 (4.0-10.0)
[2023-02-27 13:51] LABS: POTASSIUM 4.1 mmol/L (3.5-5.1)
[2023-02-27 13:54] LABS: ALBUMIN 3.6 g/dl (3.4-5.0); BLOOD UREA NITROGEN 19.7 mg/dL (7-18); CALCIUM 9.5 mg/dL (8.5-10.1)
[2023-02-27 13:57] LABS: BILIRUBIN,DIRECT 0.1 mg/dL (0.0-0.2); CREATININE 0.9 mg/dL (0.55-1.3)
[2023-02-27 13:58] LABS: BILIRUBIN,TOTAL 0.4 mg/dL (0.2-1); TOT PROT 7.3 g/dl (6.4-8.2)
[2023-02-27 14:44] VITALS: BP 109/69; PULSE 75; RESP 18; TEMP 97.7
[2023-03-01 08:07] LABS: LUTEINIZING HORMONE < 0.3 mIU/mL (.)
== END 2023-02-27 13:15 | disposition home or self-care (01) ==
LOC: JONCCHEMO 12:05 → J7W 12:10 → JONCCHEMO 13:15
PROVIDERS: ATTEND Internal Medicine Hematology & Oncology
DX: Z51.11 Encounter for antineoplastic chemotherapy (principal); C50.911 Malignant neoplasm of unspecified site of right female breast
CPT/HCPCS: 36415; 80048; 80076; 82306; 82378; 82670; 83001; 83002; 83735; 84703; 85025; 86300; 96401; J9202

== ENCOUNTER 2023-04-03 13:01 | Day surgery (SDC) | payer OTHER ==
[2023-04-03 13:10] LABS: BASO % 0.6 % (0-2.0); EOS % 5.9 % (0-4.5); HEMATOCRIT 40.2 % (32.4-45.2); HEMOGLOBIN 13.5 GM/dL (10.7-15.3); LYMPH % 25.6 % (8-40); MCH 29.4 pg (25.7-33.7); MCHC 33.6 g/dl (32.0-36.0); MEAN CELL VOLUME 87.4 fl (80-96); MEAN PLT VOLUME 8.8 fl (7.5-11.1); MONO % 6.8 % (3.8-10.2); NEUT % 61.1 % (42.8-82.8); PLATELET COUNT 354 10^3/uL (134-434); RDW 12.8 % (11.6-15.6); WHITE BLOOD COUNT 4.6 K/mm3 (4.0-10.0)
[2023-04-03 13:36] LABS: POTASSIUM 4.6 mmol/L (3.5-5.1)
[2023-04-03 13:38] LABS: BLOOD UREA NITROGEN 14.4 mg/dL (7-18); CALCIUM 9.6 mg/dL (8.5-10.1)
[2023-04-03 13:39] LABS: ALBUMIN 3.8 g/dl (3.4-5.0)
[2023-04-03 13:41] LABS: BILIRUBIN,DIRECT 0.1 mg/dL (0.0-0.2)
[2023-04-03 13:43] LABS: BILIRUBIN,TOTAL 0.5 mg/dL (0.2-1); TOT PROT 7.6 g/dl (6.4-8.2)
[2023-04-03 15:48] VITALS: BP 109/58; PULSE 77; RESP 20; TEMP 97.9
[2023-04-04 08:08] LABS: FOLLICLE STIMULATING HORMONE 8.3 mIU/mL (.); LUTEINIZING HORMONE < 0.3 mIU/mL (.)
== END 2023-04-03 13:10 | disposition home or self-care (01) ==
LOC: JONCCHEMO 13:01 → J7W 13:03 → JONCCHEMO 13:10
PROVIDERS: ATTEND Internal Medicine Hematology & Oncology
DX: Z51.11 Encounter for antineoplastic chemotherapy (principal); C50.911 Malignant neoplasm of unspecified site of right female breast
CPT/HCPCS: 36415; 80048; 80076; 82378; 82670; 83001; 83002; 83735; 84703; 85025; 86300; 96401; J9202

== ENCOUNTER 2023-05-01 12:32 | Day surgery (SDC) | payer OTHER ==
[2023-05-01 13:19] LABS: BASO % 0.8 % (0-2.0); EOS % 5.3 % (0-4.5); HEMATOCRIT 39.5 % (32.4-45.2); HEMOGLOBIN 13.9 GM/dL (10.7-15.3); LYMPH % 25.7 % (8-40); MCH 30.3 pg (25.7-33.7); MCHC 35.2 g/dl (32.0-36.0); MEAN PLT VOLUME 8.4 fl (7.5-11.1); MONO % 7.1 % (3.8-10.2); NEUT % 61.1 % (42.8-82.8); PLATELET COUNT 342 10^3/uL (134-434); RBC 4.58 M/mm3 (3.60-5.2); RDW 13.1 % (11.6-15.6); WHITE BLOOD COUNT 4.2 K/mm3 (4.0-10.0)
[2023-05-01 13:49] LABS: POTASSIUM 4.5 mmol/L (3.5-5.1)
[2023-05-01 13:51] LABS: CALCIUM 8.9 mg/dL (8.5-10.1)
[2023-05-01 13:52] LABS: ALBUMIN 3.7 g/dl (3.4-5.0); BLOOD UREA NITROGEN 16.7 mg/dL (7-18); MAGNESIUM 1.8 mg/dL (1.8-2.4)
[2023-05-01 13:54] LABS: BILIRUBIN,DIRECT 0.1 mg/dL (0.0-0.2)
[2023-05-01 13:55] LABS: CREATININE 0.9 mg/dL (0.55-1.3)
[2023-05-01 13:56] LABS: BILIRUBIN,TOTAL 0.5 mg/dL (0.2-1)
[2023-05-01 13:57] LABS: TOT PROT 7.5 g/dl (6.4-8.2)
[2023-05-01 17:22] VITALS: BP 127/65; PULSE 80; RESP 18; TEMP 97.9
[2023-05-02 08:08] LABS: FOLLICLE STIMULATING HORMONE 8.3 mIU/mL (.); LUTEINIZING HORMONE < 0.3 mIU/mL (.)
== END 2023-05-01 13:30 | disposition home or self-care (01) ==
LOC: JONCCHEMO 12:32 → J7W 12:37 → JONCCHEMO 13:30
PROVIDERS: ATTEND Internal Medicine Hematology & Oncology
DX: Z51.11 Encounter for antineoplastic chemotherapy (principal); C50.911 Malignant neoplasm of unspecified site of right female breast
CPT/HCPCS: 36415; 80048; 80076; 82306; 82378; 82670; 83001; 83002; 83735; 84703; 85025; 86300; 96402; J9202

== ENCOUNTER 2023-05-29 11:37 | Day surgery (SDC) | payer OTHER ==
[2023-05-29 12:17] LABS: BASO % 0.6 % (0-2.0); EOS % 4.1 % (0-4.5); HEMATOCRIT 39.6 % (32.4-45.2); HEMOGLOBIN 13.5 GM/dL (10.7-15.3); LYMPH % 24.4 % (8-40); MCH 29.5 pg (25.7-33.7); MCHC 34.1 g/dl (32.0-36.0); MEAN CELL VOLUME 86.4 fl (80-96); MEAN PLT VOLUME 8.4 fl (7.5-11.1); MONO % 6.7 % (3.8-10.2); NEUT % 64.2 % (42.8-82.8); PLATELET COUNT 325 10^3/uL (134-434); RBC 4.58 M/mm3 (3.60-5.2); RDW 12.8 % (11.6-15.6); WHITE BLOOD COUNT 4.4 K/mm3 (4.0-10.0)
[2023-05-29 13:07] LABS: POTASSIUM 4.2 mmol/L (3.5-5.1)
[2023-05-29 13:08] LABS: CALCIUM 9.4 mg/dL (8.5-10.1)
[2023-05-29 13:09] LABS: ALBUMIN 3.6 g/dl (3.4-5.0); MAGNESIUM 1.8 mg/dL (1.8-2.4)
[2023-05-29 13:10] LABS: BLOOD UREA NITROGEN 19.3 mg/dL (7-18)
[2023-05-29 13:12] LABS: BILIRUBIN,DIRECT 0.1 mg/dL (0.0-0.2); CREATININE 0.9 mg/dL (0.55-1.3)
[2023-05-29 13:14] LABS: BILIRUBIN,TOTAL 0.3 mg/dL (0.2-1); TOT PROT 7.3 g/dl (6.4-8.2)
[2023-05-29 13:16] VITALS: BP 126/77; PULSE 73; RESP 18; TEMP 98.1
[2023-05-31 08:06] LABS: FOLLICLE STIMULATING HORMONE 8.2 mIU/mL (.); LUTEINIZING HORMONE < 0.3 mIU/mL (.)
== END 2023-05-29 12:15 | disposition home or self-care (01) ==
LOC: JONCCHEMO 11:37 → J7W 11:38 → JONCCHEMO 12:15
PROVIDERS: ATTEND Internal Medicine Hematology & Oncology
DX: Z51.11 Encounter for antineoplastic chemotherapy (principal); C50.911 Malignant neoplasm of unspecified site of right female breast
CPT/HCPCS: 36415; 80048; 80076; 82306; 82378; 82670; 83001; 83002; 83735; 84703; 85025; 86300; 96402; J9202

== ENCOUNTER 2023-06-26 11:51 | Day surgery (SDC) | payer OTHER ==
[2023-06-26 12:24] LABS: BASO % 0.7 % (0-2.0); EOS % 6.4 % (0-4.5); HEMATOCRIT 40.2 % (32.4-45.2); HEMOGLOBIN 13.7 GM/dL (10.7-15.3); LYMPH % 25.3 % (8-40); MCH 29.8 pg (25.7-33.7); MCHC 34.2 g/dl (32.0-36.0); MEAN CELL VOLUME 87.2 fl (80-96); MEAN PLT VOLUME 8.2 fl (7.5-11.1); NEUT % 58.6 % (42.8-82.8); PLATELET COUNT 342 10^3/uL (134-434); RBC 4.61 M/mm3 (3.60-5.2); RDW 12.8 % (11.6-15.6); WHITE BLOOD COUNT 5.1 K/mm3 (4.0-10.0)
[2023-06-26 12:42] LABS: POTASSIUM 4.3 mmol/L (3.5-5.1)
[2023-06-26 12:44] LABS: BLOOD UREA NITROGEN 21.6 mg/dL (7-18); CALCIUM 9.5 mg/dL (8.5-10.1); MAGNESIUM 1.9 mg/dL (1.8-2.4)
[2023-06-26 12:47] LABS: BILIRUBIN,DIRECT 0.2 mg/dL (0.0-0.2); CREATININE 0.9 mg/dL (0.55-1.3)
[2023-06-26 12:49] LABS: BILIRUBIN,TOTAL 0.6 mg/dL (0.2-1); TOT PROT 7.8 g/dl (6.4-8.2)
[2023-06-26 16:38] VITALS: BP 113/69; PULSE 82; RESP 18; TEMP 98.1
[2023-06-28 08:07] LABS: FOLLICLE STIMULATING HORMONE 7.3 mIU/mL (.); LUTEINIZING HORMONE < 0.3 mIU/mL (.)
== END 2023-06-26 12:35 | disposition home or self-care (01) ==
LOC: JONCCHEMO 11:51
PROVIDERS: ATTEND Internal Medicine Hematology & Oncology
DX: Z51.11 Encounter for antineoplastic chemotherapy (principal); C50.911 Malignant neoplasm of unspecified site of right female breast
CPT/HCPCS: 36415; 80048; 80076; 82306; 82378; 82670; 83001; 83002; 83735; 84703; 85025; 86300; 96402; J9202

== ENCOUNTER 2023-08-21 11:25 | Day surgery (SDC) | payer OTHER ==
[2023-08-21 11:57] LABS: BASO % 0.6 % (0-2.0); EOS % 5.8 % (0-4.5); HEMATOCRIT 41.4 % (32.4-45.2); HEMOGLOBIN 14.2 GM/dL (10.7-15.3); LYMPH % 23.2 % (8-40); MCH 29.7 pg (25.7-33.7); MCHC 34.3 g/dl (32.0-36.0); MEAN CELL VOLUME 86.6 fl (80-96); MEAN PLT VOLUME 8.2 fl (7.5-11.1); MONO % 6.8 % (3.8-10.2); NEUT % 63.6 % (42.8-82.8); PLATELET COUNT 345 10^3/uL (134-434); RBC 4.78 M/mm3 (3.60-5.2); RDW 12.6 % (11.6-15.6); WHITE BLOOD COUNT 5.1 K/mm3 (4.0-10.0)
[2023-08-21 12:26] LABS: POTASSIUM 4.3 mmol/L (3.5-5.1)
[2023-08-21 12:28] LABS: BLOOD UREA NITROGEN 17.4 mg/dL (7-18); CALCIUM 9.7 mg/dL (8.5-10.1)
[2023-08-21 12:29] LABS: ALBUMIN 4.1 g/dl (3.4-5.0); MAGNESIUM 1.9 mg/dL (1.8-2.4)
[2023-08-21 12:31] LABS: BILIRUBIN,DIRECT 0.1 mg/dL (0.0-0.2)
[2023-08-21 12:32] LABS: CREATININE 0.9 mg/dL (0.55-1.3)
[2023-08-21 12:33] LABS: BILIRUBIN,TOTAL 0.5 mg/dL (0.2-1); TOT PROT 7.7 g/dl (6.4-8.2)
[2023-08-21 14:47] VITALS: BP 118/71; PULSE 85; RESP 18; TEMP 98.2
[2023-08-22 08:06] LABS: FOLLICLE STIMULATING HORMONE 8.1 mIU/mL (.); LUTEINIZING HORMONE 0.4 mIU/mL (.)
== END 2023-08-21 12:30 | disposition home or self-care (01) ==
LOC: JONCCHEMO 11:25
PROVIDERS: ATTEND Internal Medicine Hematology & Oncology
DX: Z51.11 Encounter for antineoplastic chemotherapy (principal); C50.911 Malignant neoplasm of unspecified site of right female breast
CPT/HCPCS: 36415; 80048; 80076; 82306; 82378; 82670; 83001; 83002; 83735; 84703; 85025; 86300; 96402; J9202

== ENCOUNTER 2023-09-18 11:30 | Day surgery (SDC) | payer OTHER ==
[2023-09-18 12:13] VITALS: BP 132/83; PULSE 78; RESP 20; TEMP 98.2
[2023-09-18] MEDS: LIDOCAINE HCL 1%, 10 MG/ML (20ML VIAL) ID ONE (12:39)
[2023-09-18 12:41] LABS: BASO % 0.7 % (0-2.0); EOS % 4.3 % (0-4.5); HEMATOCRIT 38.6 % (32.4-45.2); HEMOGLOBIN 13.1 GM/dL (10.7-15.3); LYMPH % 24.5 % (8-40); MCH 29.7 pg (25.7-33.7); MEAN CELL VOLUME 87.2 fl (80-96); MEAN PLT VOLUME 8.4 fl (7.5-11.1); MONO % 6.8 % (3.8-10.2); NEUT % 63.7 % (42.8-82.8); PLATELET COUNT 324 10^3/uL (134-434); RBC 4.43 M/mm3 (3.60-5.2); RDW 13.1 % (11.6-15.6)
[2023-09-18] MEDS: GOSERELIN ACETATE 3.6 MG IMPLANT SYRINGE SQ ONE (12:41)
[2023-09-18 12:58] LABS: POTASSIUM 4.6 mmol/L (3.5-5.1)
[2023-09-18 13:00] LABS: ALBUMIN 3.6 g/dl (3.4-5.0); CALCIUM 9.5 mg/dL (8.5-10.1); MAGNESIUM 2.1 mg/dL (1.8-2.4)
[2023-09-18 13:01] LABS: BLOOD UREA NITROGEN 19.1 mg/dL (7-18)
[2023-09-18 13:03] LABS: BILIRUBIN,DIRECT 0.1 mg/dL (0.0-0.2); CREATININE 0.7 mg/dL (0.55-1.3)
[2023-09-18 13:05] LABS: BILIRUBIN,TOTAL 0.4 mg/dL (0.2-1); TOT PROT 7.6 g/dl (6.4-8.2)
[2023-09-19 11:09] LABS: FOLLICLE STIMULATING HORMONE 6.6 mIU/mL (.); LUTEINIZING HORMONE < 0.3 mIU/mL (.)
== END 2023-09-18 12:45 | disposition home or self-care (01) ==
LOC: JONCCHEMO 11:30 → J7W 11:31 → JONCCHEMO 12:45
PROVIDERS: ATTEND Internal Medicine Hematology & Oncology
DX: Z51.11 Encounter for antineoplastic chemotherapy (principal)
CPT/HCPCS: 36415; 80048; 80076; 82306; 82378; 82670; 83001; 83002; 83735; 84703; 85025; 86300; 96402; J9202

== ENCOUNTER 2023-10-16 13:00 | Day surgery (SDC) | payer OTHER ==
[2023-10-16 12:50] LABS: BASO % 0.9 % (0-2.0); EOS % 5.8 % (0-4.5); HEMATOCRIT 39.9 % (32.4-45.2); HEMOGLOBIN 13.8 GM/dL (10.7-15.3); LYMPH % 27.1 % (8-40); MCH 30.1 pg (25.7-33.7); MCHC 34.7 g/dl (32.0-36.0); MEAN CELL VOLUME 86.6 fl (80-96); MEAN PLT VOLUME 8.3 fl (7.5-11.1); NEUT % 57.2 % (42.8-82.8); PLATELET COUNT 321 10^3/uL (134-434); RBC 4.61 M/mm3 (3.60-5.2); WHITE BLOOD COUNT 4.5 K/mm3 (4.0-10.0)
[2023-10-16 13:14] LABS: POTASSIUM 4.4 mmol/L (3.5-5.1)
[2023-10-16 13:17] LABS: BLOOD UREA NITROGEN 12.3 mg/dL (7-18); CALCIUM 9.3 mg/dL (8.5-10.1)
[2023-10-16 13:18] LABS: ALBUMIN 3.9 g/dl (3.4-5.0)
[2023-10-16 13:20] LABS: BILIRUBIN,DIRECT 0.1 mg/dL (0.0-0.2); CREATININE 0.8 mg/dL (0.55-1.3)
[2023-10-16 13:22] LABS: BILIRUBIN,TOTAL 0.3 mg/dL (0.2-1); TOT PROT 7.7 g/dl (6.4-8.2)
[2023-10-16] MEDS: LIDOCAINE HCL 1%, 10 MG/ML (20ML VIAL) ID ONE (13:44)
[2023-10-16] MEDS: GOSERELIN ACETATE 3.6 MG IMPLANT SYRINGE SQ ONE (13:44)
[2023-10-16 14:09] VITALS: BP 123/66; PULSE 83; RESP 18; TEMP 97.8
[2023-10-16 14:11] LABS: GAMMA GLUTAMYL TRANSPEPTIDASE 29 U/L (5-85)
[2023-10-16 14:14] LABS: CHOLESTEROL 161 mg/dL (50-200)
[2023-10-16 14:16] LABS: LDL CHOLESTEROL (ONLY SJRH) 93 mg/dL (5-100)
[2023-10-16 14:17] LABS: HDL CHOLESTEROL 59 mg/dL (40-60)
[2023-10-17 08:09] LABS: CARCINOEMBRYONIC ANTIGEN 1.8 ng/mL (0.0-4.7); FOLLICLE STIMULATING HORMONE 7.8 mIU/mL (.); LUTEINIZING HORMONE < 0.3 mIU/mL (.)
== END 2023-10-16 14:14 | disposition home or self-care (01) ==
LOC: JONCCHEMO 13:00 → J7W 13:00 → JONCCHEMO 14:14
PROVIDERS: ATTEND Internal Medicine Hematology & Oncology
DX: Z51.11 Encounter for antineoplastic chemotherapy (principal); C50.911 Malignant neoplasm of unspecified site of right female breast
CPT/HCPCS: 36415; 80048; 80061; 80076; 82105; 82306; 82378; 82670; 82977; 83001; 83002; 83735; 84703; 85025; 86300; 96401; J9202

== ENCOUNTER 2023-11-13 11:35 | Day surgery (SDC) | payer OTHER ==
[2023-11-13] MEDS: LIDOCAINE HCL 1%, 10 MG/ML (20ML VIAL) ID ONE (12:01)
[2023-11-13] MEDS: GOSERELIN ACETATE 3.6 MG IMPLANT SYRINGE SQ ONE (12:04)
[2023-11-13 12:30] LABS: BASO % 0.9 % (0-2.0); EOS % 7.2 % (0-4.5); HEMOGLOBIN 13.8 GM/dL (10.7-15.3); LYMPH % 25.4 % (8-40); MCH 30.1 pg (25.7-33.7); MCHC 34.6 g/dl (32.0-36.0); MEAN PLT VOLUME 8.1 fl (7.5-11.1); MONO % 8.7 % (3.8-10.2); NEUT % 57.8 % (42.8-82.8); PLATELET COUNT 349 10^3/uL (134-434); RBC 4.59 M/mm3 (3.60-5.2); RDW 12.9 % (11.6-15.6); WHITE BLOOD COUNT 5.2 K/mm3 (4.0-10.0)
[2023-11-13 13:17] LABS: ALBUMIN 3.9 g/dl (3.4-5.0); CALCIUM 9.5 mg/dL (8.5-10.1)
[2023-11-13 13:18] LABS: BLOOD UREA NITROGEN 16.1 mg/dL (7-18)
[2023-11-13 13:20] LABS: BILIRUBIN,DIRECT 0.1 mg/dL (0.0-0.2); CREATININE 0.9 mg/dL (0.55-1.3)
[2023-11-13 13:22] LABS: BILIRUBIN,TOTAL 0.6 mg/dL (0.2-1); TOT PROT 7.6 g/dl (6.4-8.2)
[2023-11-13 16:05] VITALS: BP 113/71; PULSE 72; RESP 18; TEMP 98.5
[2023-11-14 07:07] LABS: CARCINOEMBRYONIC ANTIGEN 2.1 ng/mL (0.0-4.7); LUTEINIZING HORMONE 0.3 mIU/mL (.)
== END 2023-11-13 12:20 | disposition home or self-care (01) ==
LOC: JONCCHEMO 11:35 → J7W 11:36 → JONCCHEMO 12:20
PROVIDERS: ATTEND Internal Medicine Hematology & Oncology
DX: Z51.11 Encounter for antineoplastic chemotherapy (principal); C50.911 Malignant neoplasm of unspecified site of right female breast
CPT/HCPCS: 36415; 80048; 80076; 82306; 82378; 82670; 83001; 83002; 83735; 84703; 85025; 86300; 96402; J9202

== ENCOUNTER 2023-12-11 11:21 | Day surgery (SDC) | payer OTHER ==
[~2023-12-11 11:21] MED LIST changes: -LIDOCAINE HCL 1%, 10 MG/ML (20ML VIAL) ID ONE
[2023-12-11] MEDS: GOSERELIN ACETATE 3.6 MG IMPLANT SYRINGE SQ ONE (12:04)
[2023-12-11] MEDS: LIDOCAINE HCL 1%, 10 MG/ML (20ML VIAL) ID ONE (12:04)
[2023-12-11 12:15] LABS: BASO % 1.2 % (0-2.0); EOS % 10.1 % (0-4.5); HEMATOCRIT 39.5 % (32.4-45.2); HEMOGLOBIN 13.3 GM/dL (10.7-15.3); LYMPH % 25.3 % (8-40); MCH 29.7 pg (25.7-33.7); MCHC 33.8 g/dl (32.0-36.0); MEAN CELL VOLUME 87.8 fl (80-96); MEAN PLT VOLUME 8.2 fl (7.5-11.1); MONO % 8.1 % (3.8-10.2); NEUT % 55.3 % (42.8-82.8); PLATELET COUNT 336 10^3/uL (134-434); RBC 4.49 M/mm3 (3.60-5.2); RDW 12.8 % (11.6-15.6); WHITE BLOOD COUNT 4.4 K/mm3 (4.0-10.0)
[2023-12-11 12:39] LABS: CHLORIDE 105 mmol/L (98-107); POTASSIUM 4.4 mmol/L (3.5-5.1); SODIUM 141 mmol/L (136-145)
[2023-12-11 12:41] LABS: BLOOD UREA NITROGEN 19.4 mg/dL (7-18)
[2023-12-11 12:42] LABS: ANION GAP 8 mmol/L (4-13); CALCIUM 9.4 mg/dL (8.5-10.1); CO2 27 mmol/L (21-32); GLUCOSE,RANDOM 123 mg/dL (74-106); MAGNESIUM 2.1 mg/dL (1.8-2.4)
[2023-12-11 12:45] LABS: BILIRUBIN,DIRECT 0.1 mg/dL (0.0-0.2); CREATININE 0.8 mg/dL (0.55-1.3); SGOT/AST 21 U/L (15-37); SGPT/ALT 27 U/L (13-61)
[2023-12-11 12:47] LABS: BILIRUBIN,TOTAL 0.5 mg/dL (0.2-1); TOT PROT 7.8 g/dl (6.4-8.2)
[2023-12-11 12:48] LABS: ALK PHOS 113 U/L (45-117)
[2023-12-11 13:52] VITALS: BP 119/73; PULSE 82; RESP 18; TEMP 97.8
[2023-12-12 23:11] LABS: LUTEINIZING HORMONE < 0.3 mIU/mL (.)
== END 2023-12-11 12:30 | disposition home or self-care (01) ==
LOC: JONCCHEMO 11:21 → J7W 11:22 → JONCCHEMO 12:30
PROVIDERS: ATTEND Internal Medicine Hematology & Oncology
DX: Z51.11 Encounter for antineoplastic chemotherapy (principal); C50.911 Malignant neoplasm of unspecified site of right female breast
CPT/HCPCS: 36415; 80048; 80076; 82306; 82378; 82670; 83001; 83002; 83735; 84703; 85025; 86300; J9202

== ENCOUNTER 2024-01-08 10:25 | Day surgery (SDC) | payer OTHER ==
[2024-01-08] MEDS: GOSERELIN ACETATE 3.6 MG IMPLANT SYRINGE SQ ONE (10:44)
[2024-01-08] MEDS: LIDOCAINE HCL 1%, 10 MG/ML (20ML VIAL) ID ONE (10:45)
[2024-01-08 11:20] LABS: BASO % 0.8 % (0-2.0); HEMATOCRIT 38.8 % (32.4-45.2); HEMOGLOBIN 13.3 GM/dL (10.7-15.3); LYMPH % 20.7 % (8-40); MCH 30.2 pg (25.7-33.7); MCHC 34.4 g/dl (32.0-36.0); MEAN CELL VOLUME 87.8 fl (80-96); MEAN PLT VOLUME 8.3 fl (7.5-11.1); MONO % 14.6 % (3.8-10.2); NEUT % 56.9 % (42.8-82.8); PLATELET COUNT 314 10^3/uL (134-434); RBC 4.42 M/mm3 (3.60-5.2); RDW 13.2 % (11.6-15.6); WHITE BLOOD COUNT 5.1 K/mm3 (4.0-10.0)
[2024-01-08 11:41] LABS: POTASSIUM 4.2 mmol/L (3.5-5.1)
[2024-01-08 11:42] LABS: BLOOD UREA NITROGEN 20.6 mg/dL (7-18); CALCIUM 9.1 mg/dL (8.5-10.1)
[2024-01-08 11:44] LABS: ALBUMIN 3.9 g/dl (3.4-5.0); MAGNESIUM 2.2 mg/dL (1.8-2.4)
[2024-01-08 11:47] LABS: BILIRUBIN,DIRECT 0.1 mg/dL (0.0-0.2)
[2024-01-08 11:48] LABS: BILIRUBIN,TOTAL 0.3 mg/dL (0.2-1); TOT PROT 7.8 g/dl (6.4-8.2)
[2024-01-08 11:50] LABS: CREATININE 0.9 mg/dL (0.55-1.3)
[2024-01-08 14:11] VITALS: BP 126/78; PULSE 94; RESP 18; TEMP 98.6
[2024-01-09 08:10] LABS: CARCINOEMBRYONIC ANTIGEN 2.4 ng/mL (0.0-4.7); FOLLICLE STIMULATING HORMONE 6.6 mIU/mL (.); LUTEINIZING HORMONE < 0.3 mIU/mL (.)
== END 2024-01-08 11:30 | disposition home or self-care (01) ==
LOC: J7W 10:25 → JONCCHEMO 10:25
PROVIDERS: ATTEND Internal Medicine Hematology & Oncology
DX: Z51.11 Encounter for antineoplastic chemotherapy (principal); C50.911 Malignant neoplasm of unspecified site of right female breast
CPT/HCPCS: 36415; 80053; 80076; 82306; 82378; 82670; 83001; 83002; 83735; 84703; 85025; 86300; 96402; J9202

== ENCOUNTER 2024-02-05 11:46 | Day surgery (SDC) | payer OTHER ==
[2024-02-05 12:42] LABS: BASO % 0.7 % (0-2.0); EOS % 6.8 % (0-4.5); HEMATOCRIT 39.6 % (32.4-45.2); HEMOGLOBIN 13.4 GM/dL (10.7-15.3); LYMPH % 26.1 % (8-40); MEAN CELL VOLUME 88.2 fl (80-96); MEAN PLT VOLUME 8.2 fl (7.5-11.1); MONO % 8.5 % (3.8-10.2); NEUT % 57.9 % (42.8-82.8); PLATELET COUNT 310 10^3/uL (134-434); RBC 4.49 M/mm3 (3.60-5.2); RDW 13.4 % (11.6-15.6); WHITE BLOOD COUNT 4.8 K/mm3 (4.0-10.0)
[2024-02-05] MEDS: LIDOCAINE HCL 1%, 10 MG/ML (20ML VIAL) ID ONE (12:56)
[2024-02-05] MEDS: GOSERELIN ACETATE 3.6 MG IMPLANT SYRINGE SQ ONE (12:57)
[2024-02-05 13:01] LABS: CHLORIDE 108 mmol/L (98-107); POTASSIUM 4.3 mmol/L (3.5-5.1); SODIUM 138 mmol/L (136-145)
[2024-02-05 13:03] LABS: ANION GAP 3 mmol/L (4-13); BLOOD UREA NITROGEN 17.3 mg/dL (7-18); CALCIUM 9.4 mg/dL (8.5-10.1); CO2 28 mmol/L (21-32); MAGNESIUM 2.4 mg/dL (1.8-2.4)
[2024-02-05 13:04] LABS: GLUCOSE,RANDOM 121 mg/dL (74-106)
[2024-02-05 13:06] LABS: BILIRUBIN,DIRECT 0.1 mg/dL (0.0-0.2); CREATININE 0.8 mg/dL (0.55-1.3); SGPT/ALT 27 U/L (13-61)
[2024-02-05 13:07] LABS: SGOT/AST 16 U/L (15-37)
[2024-02-05 13:08] LABS: BILIRUBIN,TOTAL 0.4 mg/dL (0.2-1); TOT PROT 7.4 g/dl (6.4-8.2)
[2024-02-05 13:09] LABS: ALK PHOS 109 U/L (45-117)
[2024-02-05 16:48] VITALS: BP 120/80; PULSE 80; RESP 20; TEMP 98.2
[2024-02-06 08:10] LABS: CARCINOEMBRYONIC ANTIGEN 2.5 ng/mL (0.0-4.7); FOLLICLE STIMULATING HORMONE 6.3 mIU/mL (.); LUTEINIZING HORMONE < 0.3 mIU/mL (.)
== END 2024-02-05 13:10 | disposition home or self-care (01) ==
LOC: JONCCHEMO 11:46 → J7W 11:47 → JONCCHEMO 13:10
PROVIDERS: ATTEND Internal Medicine Hematology & Oncology
DX: Z51.11 Encounter for antineoplastic chemotherapy (principal); C50.911 Malignant neoplasm of unspecified site of right female breast
CPT/HCPCS: 36415; 80048; 80076; 82306; 82378; 82670; 83001; 83002; 83735; 84703; 85025; 86300; 96402; J9202

== ENCOUNTER 2024-03-13 10:30 | Day surgery (SDC) | payer OTHER ==
[2024-03-13 11:03] LABS: BASO % 1.1 % (0-2.0); EOS % 10.9 % (0-4.5); HEMATOCRIT 39.2 % (32.4-45.2); HEMOGLOBIN 13.7 GM/dL (10.7-15.3); MCH 30.2 pg (25.7-33.7); MEAN CELL VOLUME 86.3 fl (80-96); MEAN PLT VOLUME 8.1 fl (7.5-11.1); MONO % 7.6 % (3.8-10.2); NEUT % 55.4 % (42.8-82.8); PLATELET COUNT 336 10^3/uL (134-434); RBC 4.54 M/mm3 (3.60-5.2); RDW 13.2 % (11.6-15.6); WHITE BLOOD COUNT 4.7 K/mm3 (4.0-10.0)
[2024-03-13] MEDS: LIDOCAINE HCL 1%, 10 MG/ML (20ML VIAL) ID ONE (11:10)
[2024-03-13] MEDS: GOSERELIN ACETATE 3.6 MG IMPLANT SYRINGE SQ ONE (11:11)
[2024-03-13 11:16] LABS: CHLORIDE 108 mmol/L (98-107); POTASSIUM 4.4 mmol/L (3.5-5.1); SODIUM 139 mmol/L (136-145)
[2024-03-13 11:19] LABS: ANION GAP 7 mmol/L (4-13); BLOOD UREA NITROGEN 17.3 mg/dL (7-18); CALCIUM 9.5 mg/dL (8.5-10.1); CO2 24 mmol/L (21-32)
[2024-03-13 11:21] LABS: GLUCOSE,RANDOM 126 mg/dL (74-106)
[2024-03-13 11:22] LABS: SGOT/AST 22 U/L (15-37); SGPT/ALT 29 U/L (13-61)
[2024-03-13 11:23] LABS: BILIRUBIN,DIRECT 0.1 mg/dL (0.0-0.2)
[2024-03-13 11:25] LABS: ALK PHOS 111 U/L (45-117); BILIRUBIN,TOTAL 0.8 mg/dL (0.2-1); TOT PROT 7.8 g/dl (6.4-8.2)
[2024-03-13 15:46] VITALS: BP 120/73; PULSE 81; RESP 16; TEMP 98.1
[2024-03-14 08:11] LABS: CARCINOEMBRYONIC ANTIGEN 2.4 ng/mL (0.0-4.7)
[2024-03-14 08:11] LABS: FOLLICLE STIMULATING HORMONE 6.1 mIU/mL (.); LUTEINIZING HORMONE < 0.3 mIU/mL (.)
== END 2024-03-13 11:30 | disposition home or self-care (01) ==
LOC: JONCCHEMO 10:30 → J7W 10:31 → JONCCHEMO 11:30
PROVIDERS: ATTEND Internal Medicine Hematology & Oncology
DX: Z51.11 Encounter for antineoplastic chemotherapy (principal); C50.911 Malignant neoplasm of unspecified site of right female breast
CPT/HCPCS: 36415; 80048; 80076; 82306; 82378; 82670; 83001; 83002; 83735; 84703; 85025; 86300; 96402; J9202

== ENCOUNTER 2024-04-08 11:17 | Day surgery (SDC) | payer OTHER ==
[2024-04-08] MEDS: LIDOCAINE HCL 1%, 10 MG/ML (20ML VIAL) ID ONE (11:43)
[2024-04-08] MEDS: GOSERELIN ACETATE 3.6 MG IMPLANT SYRINGE SQ ONE (11:43)
[2024-04-08 11:58] LABS: BASO % 1.1 % (0-2.0); EOS % 9.3 % (0-4.5); HEMATOCRIT 39.6 % (32.4-45.2); HEMOGLOBIN 13.5 GM/dL (10.7-15.3); LYMPH % 24.1 % (8-40); MCHC 34.1 g/dl (32.0-36.0); MEAN CELL VOLUME 87.8 fl (80-96); MEAN PLT VOLUME 8.1 fl (7.5-11.1); MONO % 9.6 % (3.8-10.2); NEUT % 55.9 % (42.8-82.8); PLATELET COUNT 378 10^3/uL (134-434); RBC 4.51 M/mm3 (3.60-5.2); RDW 12.9 % (11.6-15.6); WHITE BLOOD COUNT 4.9 K/mm3 (4.0-10.0)
[2024-04-08 12:16] LABS: CHLORIDE 109 mmol/L (98-107); POTASSIUM 4.3 mmol/L (3.5-5.1); SODIUM 140 mmol/L (136-145)
[2024-04-08 12:21] LABS: CALCIUM 9.7 mg/dL (8.5-10.1)
[2024-04-08 12:22] LABS: ALBUMIN 3.8 g/dl (3.4-5.0); ANION GAP 8 mmol/L (4-13); BLOOD UREA NITROGEN 25.9 mg/dL (7-18); CO2 24 mmol/L (21-32); GLUCOSE,RANDOM 129 mg/dL (74-106); MAGNESIUM 2.1 mg/dL (1.8-2.4)
[2024-04-08 12:25] LABS: BILIRUBIN,DIRECT 0.1 mg/dL (0.0-0.2); SGOT/AST 21 U/L (15-37)
[2024-04-08 12:26] LABS: SGPT/ALT 29 U/L (13-61)
[2024-04-08 12:27] LABS: BILIRUBIN,TOTAL 0.5 mg/dL (0.2-1); TOT PROT 7.8 g/dl (6.4-8.2)
[2024-04-08 12:28] LABS: ALK PHOS 114 U/L (45-117)
[2024-04-08 16:48] VITALS: BP 115/76; PULSE 85; RESP 18; TEMP 98.5
[2024-04-09 08:11] LABS: LUTEINIZING HORMONE < 0.3 mIU/mL (.)
== END 2024-04-08 12:00 | disposition home or self-care (01) ==
LOC: JONCCHEMO 11:17 → J7W 11:18 → JONCCHEMO 12:00
PROVIDERS: ATTEND Internal Medicine Hematology & Oncology
DX: Z51.11 Encounter for antineoplastic chemotherapy (principal); C50.911 Malignant neoplasm of unspecified site of right female breast
CPT/HCPCS: 36415; 80048; 80076; 82306; 82378; 82670; 83001; 83002; 83735; 84703; 85025; 86300; 96402; J9202

== ENCOUNTER 2024-05-06 11:46 | Day surgery (SDC) | payer OTHER ==
[2024-05-06] MEDS: LIDOCAINE HCL 1%, 10 MG/ML (20ML VIAL) ID ONE (12:52)
[2024-05-06] MEDS: GOSERELIN ACETATE 3.6 MG IMPLANT SYRINGE SQ ONE (12:52)
[2024-05-06 13:20] LABS: BASO % 0.6 % (0-2.0); HEMATOCRIT 38.5 % (32.4-45.2); HEMOGLOBIN 12.9 GM/dL (10.7-15.3); LYMPH % 17.3 % (8-40); MCH 29.8 pg (25.7-33.7); MCHC 33.6 g/dl (32.0-36.0); MEAN CELL VOLUME 88.9 fl (80-96); MEAN PLT VOLUME 8.3 fl (7.5-11.1); NEUT % 71.1 % (42.8-82.8); PLATELET COUNT 336 10^3/uL (134-434); RBC 4.33 M/mm3 (3.60-5.2); RDW 12.9 % (11.6-15.6); WHITE BLOOD COUNT 7.5 K/mm3 (4.0-10.0)
[2024-05-06 13:39] LABS: CHLORIDE 110 mmol/L (98-107); SODIUM 143 mmol/L (136-145)
[2024-05-06 13:41] LABS: CALCIUM 9.4 mg/dL (8.5-10.1)
[2024-05-06 13:42] LABS: ALBUMIN 3.7 g/dl (3.4-5.0); ANION GAP 4 mmol/L (4-13); BLOOD UREA NITROGEN 22.2 mg/dL (7-18); CO2 29 mmol/L (21-32); GLUCOSE,RANDOM 123 mg/dL (74-106)
[2024-05-06 13:44] LABS: BILIRUBIN,DIRECT 0.1 mg/dL (0.0-0.2)
[2024-05-06 13:45] LABS: CREATININE 0.9 mg/dL (0.55-1.3); SGOT/AST 21 U/L (15-37); SGPT/ALT 39 U/L (13-61)
[2024-05-06 13:46] LABS: BILIRUBIN,TOTAL 0.3 mg/dL (0.2-1); TOT PROT 7.4 g/dl (6.4-8.2)
[2024-05-06 13:48] LABS: ALK PHOS 125 U/L (45-117)
[2024-05-06 17:10] VITALS: BP 124/70; PULSE 83; RESP 16; TEMP 98.3
[2024-05-07 08:10] LABS: CARCINOEMBRYONIC ANTIGEN 1.8 ng/mL (0.0-4.7); LUTEINIZING HORMONE < 0.3 mIU/mL (.)
== END 2024-05-06 13:00 | disposition home or self-care (01) ==
LOC: JONCCHEMO 11:46 → J7W 11:59 → JONCCHEMO 13:00
PROVIDERS: ATTEND Internal Medicine Hematology & Oncology
DX: Z51.11 Encounter for antineoplastic chemotherapy (principal); C50.911 Malignant neoplasm of unspecified site of right female breast
CPT/HCPCS: 36415; 80048; 80076; 82306; 82378; 82670; 83001; 83002; 83735; 84703; 85025; 86300; 96401; J9202

== ENCOUNTER 2024-06-03 10:50 | Day surgery (SDC) | payer OTHER ==
[2024-06-03] MEDS: LIDOCAINE HCL 1%, 10 MG/ML (20ML VIAL) ID ONE (11:19)
[2024-06-03] MEDS: GOSERELIN ACETATE 3.6 MG IMPLANT SYRINGE SQ ONE (11:22)
[2024-06-03 11:36] LABS: BASO % 0.8 % (0-2.0); EOS % 5.7 % (0-4.5); HEMATOCRIT 40.9 % (32.4-45.2); HEMOGLOBIN 13.7 GM/dL (10.7-15.3); LYMPH % 25.8 % (8-40); MCH 29.9 pg (25.7-33.7); MCHC 33.6 g/dl (32.0-36.0); MEAN CELL VOLUME 88.9 fl (80-96); MONO % 7.3 % (3.8-10.2); NEUT % 60.4 % (42.8-82.8); PLATELET COUNT 345 10^3/uL (134-434)
[2024-06-03 12:01] LABS: CHLORIDE 106 mmol/L (98-107); POTASSIUM 4.3 mmol/L (3.5-5.1); SODIUM 140 mmol/L (136-145)
[2024-06-03 12:03] LABS: CALCIUM 9.6 mg/dL (8.5-10.1)
[2024-06-03 12:04] LABS: ALBUMIN 3.9 g/dl (3.4-5.0); ANION GAP 7 mmol/L (4-13); BLOOD UREA NITROGEN 14.4 mg/dL (7-18); CO2 28 mmol/L (21-32); GLUCOSE,RANDOM 134 mg/dL (74-106); MAGNESIUM 1.9 mg/dL (1.8-2.4)
[2024-06-03 12:06] LABS: BILIRUBIN,DIRECT 0.1 mg/dL (0.0-0.2); SGPT/ALT 27 U/L (13-61)
[2024-06-03 12:07] LABS: SGOT/AST 16 U/L (15-37)
[2024-06-03 12:08] LABS: BILIRUBIN,TOTAL 0.5 mg/dL (0.2-1); TOT PROT 7.7 g/dl (6.4-8.2)
[2024-06-03 12:09] LABS: ALK PHOS 104 U/L (45-117)
[2024-06-03 16:59] VITALS: BP 117/66; PULSE 83; TEMP 98.5
[2024-06-04 07:32] VITALS: RESP 20
[2024-06-04 08:12] LABS: FOLLICLE STIMULATING HORMONE 7.4 mIU/mL (.); LUTEINIZING HORMONE < 0.3 mIU/mL (.)
== END 2024-06-03 17:01 | disposition home or self-care (01) ==
LOC: JONCCHEMO 10:50 → J7W 10:51 → JONCCHEMO 17:01
PROVIDERS: ATTEND Internal Medicine Hematology & Oncology
DX: Z51.11 Encounter for antineoplastic chemotherapy (principal); C50.911 Malignant neoplasm of unspecified site of right female breast
CPT/HCPCS: 36415; 80048; 80076; 82306; 82378; 82670; 83001; 83002; 83735; 84703; 85025; 86300; 96402; J9202

== ENCOUNTER 2024-07-01 11:10 | Day surgery (SDC) | payer OTHER ==
[2024-07-01] MEDS: LIDOCAINE HCL 1%, 10 MG/ML (20ML VIAL) ID ONE (11:24)
[2024-07-01] MEDS: GOSERELIN ACETATE 3.6 MG IMPLANT SYRINGE SQ ONE (11:24)
[2024-07-01 11:34] LABS: HEMATOCRIT 40.9 % (32.4-45.2); HEMOGLOBIN 13.7 GM/dL (10.7-15.3); LYMPH % 24.9 % (8-40); MCH 29.2 pg (25.7-33.7); MCHC 33.5 g/dl (32.0-36.0); MEAN CELL VOLUME 87.1 fl (80-96); MEAN PLT VOLUME 8.2 fl (7.5-11.1); MONO % 7.1 % (3.8-10.2); PLATELET COUNT 331 10^3/uL (134-434); RBC 4.69 M/mm3 (3.60-5.2); RDW 12.9 % (11.6-15.6); WHITE BLOOD COUNT 4.7 K/mm3 (4.0-10.0)
[2024-07-01 12:12] LABS: POTASSIUM 4.2 mmol/L (3.5-5.1)
[2024-07-01 12:15] LABS: CALCIUM 9.5 mg/dL (8.5-10.1)
[2024-07-01 12:16] LABS: ALBUMIN 3.8 g/dl (3.4-5.0); BLOOD UREA NITROGEN 16.5 mg/dL (7-18); MAGNESIUM 1.9 mg/dL (1.8-2.4)
[2024-07-01 12:17] LABS: BILIRUBIN,DIRECT 0.1 mg/dL (0.0-0.2)
[2024-07-01 12:20] LABS: BILIRUBIN,TOTAL 0.4 mg/dL (0.2-1); TOT PROT 7.7 g/dl (6.4-8.2)
[2024-07-01 17:32] VITALS: BP 129/70; PULSE 79; RESP 20; TEMP 97.3
[2024-07-02 08:08] LABS: CARCINOEMBRYONIC ANTIGEN 2.1 ng/mL (0.0-4.7); LUTEINIZING HORMONE < 0.3 mIU/mL (.)
== END 2024-07-01 12:00 | disposition home or self-care (01) ==
LOC: JONCCHEMO 11:10 → J7W 11:10 → JONCCHEMO 12:00
PROVIDERS: ATTEND Internal Medicine Hematology & Oncology
DX: Z51.11 Encounter for antineoplastic chemotherapy (principal); C50.911 Malignant neoplasm of unspecified site of right female breast
CPT/HCPCS: 36415; 80048; 80076; 82306; 82378; 82670; 83001; 83002; 83735; 84703; 85025; 86300; 96402; J9202

== ENCOUNTER 2024-07-29 11:56 | Day surgery (SDC) | payer OTHER ==
[2024-07-29] MEDS: LIDOCAINE HCL 1%, 10 MG/ML (20ML VIAL) ID ONE (12:19)
[2024-07-29] MEDS: GOSERELIN ACETATE 3.6 MG IMPLANT SYRINGE SQ ONE (12:20)
[2024-07-29 12:46] LABS: BASO % 1.3 % (0-2.0); EOS % 5.7 % (0-4.5); HEMATOCRIT 42.6 % (32.4-45.2); HEMOGLOBIN 13.8 GM/dL (10.7-15.3); LYMPH % 29.8 % (8-40); MCH 28.9 pg (25.7-33.7); MCHC 32.3 g/dl (32.0-36.0); MEAN CELL VOLUME 89.5 fl (80-96); MEAN PLT VOLUME 8.8 fl (7.5-11.1); MONO % 7.3 % (3.8-10.2); NEUT % 55.9 % (42.8-82.8); PLATELET COUNT 352 10^3/uL (134-434); RBC 4.76 M/mm3 (3.60-5.2); RDW 13.4 % (11.6-15.6); WHITE BLOOD COUNT 4.6 K/mm3 (4.0-10.0)
[2024-07-29 13:07] LABS: CHLORIDE 113 mmol/L (98-107); POTASSIUM 4.3 mmol/L (3.5-5.1); SODIUM 142 mmol/L (136-145)
[2024-07-29 13:09] LABS: CALCIUM 9.4 mg/dL (8.5-10.1)
[2024-07-29 13:10] LABS: ALBUMIN 3.9 g/dl (3.4-5.0); ANION GAP 6 mmol/L (4-13); BLOOD UREA NITROGEN 17.5 mg/dL (7-18); CO2 24 mmol/L (21-32); GLUCOSE,RANDOM 138 mg/dL (74-106); MAGNESIUM 2.2 mg/dL (1.8-2.4)
[2024-07-29 13:12] LABS: BILIRUBIN,DIRECT 0.1 mg/dL (0.0-0.2)
[2024-07-29 13:13] LABS: CREATININE 0.9 mg/dL (0.55-1.3); SGOT/AST 20 U/L (15-37); SGPT/ALT 35 U/L (13-61)
[2024-07-29 13:14] LABS: BILIRUBIN,TOTAL 0.3 mg/dL (0.2-1)
[2024-07-29 13:15] LABS: TOT PROT 7.6 g/dl (6.4-8.2)
[2024-07-29 13:16] LABS: ALK PHOS 102 U/L (45-117)
[2024-07-29 14:36] VITALS: BP 109/71; PULSE 77; RESP 18; TEMP 98.3
[2024-07-30 08:07] LABS: CARCINOEMBRYONIC ANTIGEN 2.2 ng/mL (0.0-4.7); FOLLICLE STIMULATING HORMONE 7.2 mIU/mL (.); LUTEINIZING HORMONE < 0.3 mIU/mL (.)
== END 2024-07-29 12:30 | disposition home or self-care (01) ==
LOC: JONCCHEMO 11:56 → J7W 11:57 → JONCCHEMO 12:30
PROVIDERS: ATTEND Internal Medicine Hematology & Oncology
DX: Z51.11 Encounter for antineoplastic chemotherapy (principal); C50.911 Malignant neoplasm of unspecified site of right female breast
CPT/HCPCS: 36415; 80048; 80076; 82306; 82378; 82670; 83001; 83002; 83735; 84703; 85025; 86300; 96401; J9202

== ENCOUNTER 2024-08-26 11:29 | Day surgery (SDC) | payer OTHER ==
[2024-08-26] MEDS: GOSERELIN ACETATE 3.6 MG IMPLANT SYRINGE SQ ONE (12:09)
[2024-08-26] MEDS: LIDOCAINE HCL 1%, 10 MG/ML (20ML VIAL) ID ONE (12:09)
[2024-08-26 12:35] LABS: EOS % 4.9 % (0-4.5); HEMATOCRIT 39.9 % (32.4-45.2); HEMOGLOBIN 13.4 GM/dL (10.7-15.3); MCH 29.6 pg (25.7-33.7); MCHC 33.4 g/dl (32.0-36.0); MEAN CELL VOLUME 88.6 fl (80-96); MEAN PLT VOLUME 8.4 fl (7.5-11.1); MONO % 9.2 % (3.8-10.2); NEUT % 56.9 % (42.8-82.8); PLATELET COUNT 336 10^3/uL (134-434); RDW 13.2 % (11.6-15.6); WHITE BLOOD COUNT 4.4 K/mm3 (4.0-10.0)
[2024-08-26 13:17] LABS: CHLORIDE 110 mmol/L (98-107); POTASSIUM 4.1 mmol/L (3.5-5.1); SODIUM 138 mmol/L (136-145)
[2024-08-26 13:18] LABS: ALBUMIN 3.8 g/dl (3.4-5.0); ANION GAP 1 mmol/L (4-13); BLOOD UREA NITROGEN 23.5 mg/dL (7-18); CALCIUM 9.2 mg/dL (8.5-10.1); CO2 27 mmol/L (21-32); GLUCOSE,RANDOM 78 mg/dL (74-106); MAGNESIUM 1.9 mg/dL (1.8-2.4)
[2024-08-26 13:21] VITALS: BP 116/73; PULSE 83; RESP 18; TEMP 98
[2024-08-26 13:21] LABS: BILIRUBIN,DIRECT 0.1 mg/dL (0.0-0.2); SGOT/AST 16 U/L (15-37); SGPT/ALT 29 U/L (13-61)
[2024-08-26 13:23] LABS: BILIRUBIN,TOTAL 0.4 mg/dL (0.2-1); TOT PROT 7.6 g/dl (6.4-8.2)
[2024-08-26 13:24] LABS: ALK PHOS 113 U/L (45-117)
[2024-08-28 11:09] LABS: CARCINOEMBRYONIC ANTIGEN 2.1 ng/mL (0.0-4.7)
== END 2024-08-26 12:20 | disposition home or self-care (01) ==
LOC: JONCCHEMO 11:29 → J7W 11:31 → JONCCHEMO 12:20
PROVIDERS: ATTEND Internal Medicine Hematology & Oncology
DX: Z51.11 Encounter for antineoplastic chemotherapy (principal); C50.911 Malignant neoplasm of unspecified site of right female breast
CPT/HCPCS: 36415; 80048; 80076; 82306; 82378; 82670; 83735; 84703; 85025; 86300; 96401; 96402; J9202

== ENCOUNTER 2024-09-23 11:35 | Day surgery (SDC) | payer OTHER ==
[2024-09-23] MEDS: GOSERELIN ACETATE 3.6 MG IMPLANT SYRINGE SQ ONE (12:23)
[2024-09-23] MEDS: LIDOCAINE HCL 1%, 10 MG/ML (20ML VIAL) ID ONE (12:23)
[2024-09-23 12:38] LABS: BASO % 1.1 % (0-2.0); EOS % 4.5 % (0-4.5); HEMATOCRIT 39.7 % (32.4-45.2); HEMOGLOBIN 13.7 GM/dL (10.7-15.3); LYMPH % 28.5 % (8-40); MCH 29.7 pg (25.7-33.7); MCHC 34.4 g/dl (32.0-36.0); MEAN CELL VOLUME 86.6 fl (80-96); MEAN PLT VOLUME 8.4 fl (7.5-11.1); NEUT % 58.9 % (42.8-82.8); PLATELET COUNT 330 10^3/uL (134-434); RBC 4.59 M/mm3 (3.60-5.2); RDW 13.3 % (11.6-15.6); WHITE BLOOD COUNT 4.5 K/mm3 (4.0-10.0)
[2024-09-23 13:57] LABS: CHLORIDE 111 mmol/L (98-107); POTASSIUM 4.1 mmol/L (3.5-5.1); SODIUM 143 mmol/L (136-145)
[2024-09-23 14:00] LABS: CALCIUM 9.4 mg/dL (8.5-10.1)
[2024-09-23 14:01] LABS: ALBUMIN 3.8 g/dl (3.4-5.0); ANION GAP 7 mmol/L (4-13); BLOOD UREA NITROGEN 22.4 mg/dL (7-18); CO2 25 mmol/L (21-32); GLUCOSE,RANDOM 109 mg/dL (74-106); MAGNESIUM 1.9 mg/dL (1.8-2.4)
[2024-09-23 14:03] LABS: BILIRUBIN,DIRECT 0.1 mg/dL (0.0-0.2)
[2024-09-23 14:04] LABS: SGOT/AST 15 U/L (15-37); SGPT/ALT 28 U/L (13-61)
[2024-09-23 14:05] LABS: BILIRUBIN,TOTAL 0.4 mg/dL (0.2-1); TOT PROT 7.6 g/dl (6.4-8.2)
[2024-09-23 14:07] LABS: ALK PHOS 106 U/L (45-117)
[2024-09-23 15:23] VITALS: BP 111/62; PULSE 85; RESP 18; TEMP 98.1
== END 2024-09-23 12:30 | disposition home or self-care (01) ==
LOC: JONCCHEMO 11:35 → J7W 11:35 → JONCCHEMO 12:30
PROVIDERS: ATTEND Internal Medicine Hematology & Oncology
DX: Z51.11 Encounter for antineoplastic chemotherapy (principal); C50.911 Malignant neoplasm of unspecified site of right female breast
CPT/HCPCS: 36415; 80048; 80053; 80076; 82306; 82378; 82670; 83735; 84703; 85025; 86300; 96402; J9202

== ENCOUNTER 2024-10-21 10:55 | Day surgery (SDC) | payer OTHER ==
[2024-10-21] MEDS: GOSERELIN ACETATE 3.6 MG IMPLANT SYRINGE SQ ONE (11:22)
[2024-10-21] MEDS: LIDOCAINE HCL 1%, 10 MG/ML (20ML VIAL) ID ONE (11:23)
[2024-10-21 11:50] LABS: ABSOLUTE IMMATURE GRANULOCYTES 0.01 x10^3/uL (0.0-0.031); BASOPHILS # 0.04 x10^3/uL (0.01-0.08); EOSINOPHIL % 3.8 % (0.7-5.8); EOSINOPHILS # 0.16 x10^3/uL (0.04-0.36); HEMOGLOBIN 13.3 g/dL (11.2-15.7); MCHC 33.3 g/dl (32.2-35.5); MEAN CELL VOLUME 87.3 fl (79.4-94.8); MEAN PLT VOLUME 10.2 fl (9.4-12.3); MONOCYTE # 0.31 x10^3/uL (0.24-0.86); MONOCYTE % 7.3 % (4.7-12.5); PLATELET COUNT 343 x10^3/uL (182-369); RDW 12.2 % (12.2-17.1)
[2024-10-21 12:09] LABS: CHLORIDE 102 mmol/L (98-107); SODIUM 140 mmol/L (136-145)
[2024-10-21 12:11] LABS: CALCIUM 9.3 mg/dL (8.5-10.1)
[2024-10-21 12:12] LABS: ALBUMIN 3.8 g/dl (3.4-5.0); ANION GAP 13 mmol/L (4-13); CO2 25 mmol/L (21-32); GLUCOSE,RANDOM 130 mg/dL (74-106)
[2024-10-21 12:15] LABS: BILIRUBIN,DIRECT 0.1 mg/dL (0.0-0.2); CREATININE 0.9 mg/dL (0.55-1.3); SGOT/AST 21 U/L (15-37); SGPT/ALT 28 U/L (13-61)
[2024-10-21 12:16] LABS: BILIRUBIN,TOTAL 0.5 mg/dL (0.2-1); TOT PROT 7.5 g/dl (6.4-8.2)
[2024-10-21 12:17] LABS: ALK PHOS 104 U/L (45-117)
[2024-10-21 12:39] VITALS: BP 123/38; PULSE 97; RESP 20; TEMP 98
[2024-10-25 08:09] LABS: CARCINOEMBRYONIC ANTIGEN 2.5 ng/mL (0.0-4.7)
== END 2024-10-21 11:40 | disposition home or self-care (01) ==
LOC: JONCCHEMO 10:55 → J7W 10:56 → JONCCHEMO 11:40
PROVIDERS: ATTEND Internal Medicine Hematology & Oncology
DX: Z51.11 Encounter for antineoplastic chemotherapy (principal); C50.911 Malignant neoplasm of unspecified site of right female breast
CPT/HCPCS: 36415; 80048; 80076; 82306; 82378; 82670; 83735; 84703; 85025; 86300; 96402; J9202

== ENCOUNTER 2024-11-18 11:21 | Day surgery (SDC) | payer OTHER ==
[2024-11-18] MEDS: LIDOCAINE HCL 1%, 10 MG/ML (20ML VIAL) ID ONE (11:46)
[2024-11-18] MEDS: GOSERELIN ACETATE 3.6 MG IMPLANT SYRINGE SQ ONE (11:46)
[2024-11-18 11:58] LABS: ABSOLUTE IMMATURE GRANULOCYTES 0.01 x10^3/uL (0.0-0.031); BASOPHILS # 0.03 x10^3/uL (0.01-0.08); EOSINOPHIL % 4.8 % (0.7-5.8); EOSINOPHILS # 0.22 x10^3/uL (0.04-0.36); HEMATOCRIT 41.2 % (34.1-44.9); HEMOGLOBIN 13.7 g/dL (11.2-15.7); MCHC 33.3 g/dl (32.2-35.5); MEAN PLT VOLUME 10.1 fl (9.4-12.3); MONOCYTE # 0.42 x10^3/uL (0.24-0.86); MONOCYTE % 9.1 % (4.7-12.5); PLATELET COUNT 343 x10^3/uL (182-369)
[2024-11-18 12:27] LABS: CHLORIDE 107 mmol/L (98-107); POTASSIUM 4.2 mmol/L (3.5-5.1); SODIUM 135 mmol/L (136-145)
[2024-11-18 12:28] LABS: CALCIUM 9.9 mg/dL (8.5-10.1)
[2024-11-18 12:29] LABS: ANION GAP 2 mmol/L (4-13); BLOOD UREA NITROGEN 20.3 mg/dL (7-18); CO2 25 mmol/L (21-32); GLUCOSE,RANDOM 140 mg/dL (74-106); MAGNESIUM 1.9 mg/dL (1.8-2.4)
[2024-11-18 12:32] LABS: BILIRUBIN,DIRECT 0.1 mg/dL (0.0-0.2); CREATININE 0.8 mg/dL (0.55-1.3); SGOT/AST 20 U/L (15-37); SGPT/ALT 33 U/L (13-61)
[2024-11-18 12:34] LABS: BILIRUBIN,TOTAL 0.3 mg/dL (0.2-1); TOT PROT 7.7 g/dl (6.4-8.2)
[2024-11-18 12:35] LABS: ALK PHOS 108 U/L (45-117)
[2024-11-18 12:37] VITALS: BP 118/73; PULSE 73; RESP 20; TEMP 98.2
== END 2024-11-18 12:00 | disposition home or self-care (01) ==
LOC: JONCCHEMO 11:21 → J7W 11:22 → JONCCHEMO 12:00
PROVIDERS: ATTEND Internal Medicine Hematology & Oncology
DX: Z51.11 Encounter for antineoplastic chemotherapy (principal); C50.919 Malignant neoplasm of unspecified site of unspecified female breast
CPT/HCPCS: 36415; 80048; 80076; 82306; 82378; 82607; 82670; 83735; 84703; 85025; 86300; 96401; J9202

== ENCOUNTER 2025-02-10 10:55 | Day surgery (SDC) | payer OTHER ==
[2025-02-10] MEDS: GOSERELIN ACETATE 3.6 MG IMPLANT SYRINGE SQ ONE (11:16)
[2025-02-10] MEDS: LIDOCAINE HCL 1%, 10 MG/ML (20ML VIAL) ID ONE (11:16)
[2025-02-10 11:47] LABS: ABSOLUTE IMMATURE GRANULOCYTES 0.02 x10^3/uL (0.0-0.031); BASOPHILS # 0.03 x10^3/uL (0.01-0.08); EOSINOPHIL % 3.3 % (0.7-5.8); EOSINOPHILS # 0.17 x10^3/uL (0.04-0.36); MCHC 33.3 g/dl (32.2-35.5); MEAN CELL VOLUME 88.7 fl (79.4-94.8); MEAN PLT VOLUME 10.3 fl (9.4-12.3); MONOCYTE # 0.49 x10^3/uL (0.24-0.86); MONOCYTE % 9.5 % (4.7-12.5); RDW 11.9 % (12.2-17.1)
[2025-02-10 12:12] LABS: CO2 25 mmol/L (21-32)
[2025-02-10 12:13] LABS: GLUCOSE,RANDOM 129 mg/dL (74-106)
[2025-02-10 12:15] LABS: SGPT/ALT 39 U/L (13-61)
[2025-02-10 12:16] VITALS: BP 112/54; PULSE 76; RESP 18; TEMP 98.4
[2025-02-10 12:16] LABS: CREATININE 1.0 mg/dL (0.55-1.3); SGOT/AST 22 U/L (15-37)
[2025-02-10 12:17] LABS: TOT PROT 7.6 g/dl (6.4-8.2)
[2025-02-10 12:18] LABS: ALK PHOS 108 U/L (45-117)
[2025-02-11 23:11] LABS: LUTEINIZING HORMONE < 0.3 mIU/mL (.)
== END 2025-02-10 11:25 | disposition home or self-care (01) ==
LOC: JONCCHEMO 10:55
PROVIDERS: ATTEND Internal Medicine Hematology & Oncology
DX: Z51.11 Encounter for antineoplastic chemotherapy (principal); C50.911 Malignant neoplasm of unspecified site of right female breast
CPT/HCPCS: 36415; 80048; 80076; 82306; 82378; 82670; 83001; 83002; 83735; 84703; 85025; 86300; J9202

== ENCOUNTER → 2025-04-03 | Day surgery (SDC) | payer OTHER | END | disposition home or self-care (01) | LOC: FMAMMOTONE 09:30 → EDSTATUS 10:00 | PROVIDERS: ATTEND Surgery | PROC: 0H9U3ZX Drainage of Left Breast, Percutaneous Approach, Diagnostic (ICD-10-PCS; principal; 2025-04-03) | DX: N64.89 Other specified disorders of breast (principal); Z85.3 Personal history of malignant neoplasm of breast | CPT/HCPCS: 19081 ==

== ENCOUNTER 2025-04-07 11:49 | Day surgery (SDC) | payer OTHER ==
[2025-04-07 12:29] LABS: ABSOLUTE IMMATURE GRANULOCYTES 0.01 x10^3/uL (0.0-0.031); BASOPHILS # 0.04 x10^3/uL (0.01-0.08); EOSINOPHIL % 7.3 % (0.7-5.8); EOSINOPHILS # 0.37 x10^3/uL (0.04-0.36); MCHC 33.5 g/dl (32.2-35.5); MEAN CELL VOLUME 87.4 fl (79.4-94.8); MEAN PLT VOLUME 10.0 fl (9.4-12.3); MONOCYTE # 0.48 x10^3/uL (0.24-0.86); MONOCYTE % 9.4 % (4.7-12.5); RDW 11.9 % (12.2-17.1)
[2025-04-07 12:57] LABS: GLUCOSE,RANDOM 118 mg/dL (74-106)
[2025-04-07 12:58] LABS: TOT PROT 7.5 g/dl (6.4-8.2)
[2025-04-07 12:59] LABS: CO2 23 mmol/L (21-32)
[2025-04-07 13:00] LABS: ALK PHOS 99 U/L (40-150)
[2025-04-07 13:03] LABS: CREATININE 0.82 mg/dL (0.55-1.3); SGOT/AST 26 U/L (5-34); SGPT/ALT 34 U/L (0-55)
[2025-04-07] MEDS: LIDOCAINE HCL 1%, 10 MG/ML (20ML VIAL) ID ONE (13:15)
[2025-04-07] MEDS: GOSERELIN ACETATE 3.6 MG IMPLANT SYRINGE SQ ONE (13:16)
[2025-04-07 16:51] VITALS: BP 130/75; PULSE 74; RESP 20; TEMP 97.9
[2025-04-08 14:10] LABS: LUTEINIZING HORMONE < 0.3 mIU/mL (.)
== END 2025-04-07 13:25 | disposition home or self-care (01) ==
LOC: JONCCHEMO 11:49 → J7W 13:47
PROVIDERS: ATTEND Internal Medicine Hematology & Oncology
DX: Z51.11 Encounter for antineoplastic chemotherapy (principal); C50.919 Malignant neoplasm of unspecified site of unspecified female breast
CPT/HCPCS: 36415; 80048; 80076; 82306; 82378; 82670; 83001; 83002; 83735; 84703; 85025; 86300; 96402; J9202